=== PATIENT | male | born 1960 | race Caucasian/White ===

== ENCOUNTER 2020-12-14 11:08 | Outpatient (REF) | payer MEDICARE, MEDICAID, SELFPAY ==
[2020-12-14 12:32] LABS: Alanine Aminotransferase 46 U/L (0-40); Albumin Level 3.8 g/dL (3.5-5.0); Alkaline Phosphatase 64 U/L (39-117); Anion Gap 13 (12-20); Aspartate Amino Transferase 41 U/L (5-37); Bilirubin Total 1.2 mg/dL (0.0-1.0); Blood Urea Nitrogen 17 mg/dL (9-16); Calcium 8.8 mg/dL (8.4-10.2); Carbon Dioxide 28 mmol/L (22-29); Chloride 105 mmol/L (96-108); Cholesterol 244 mg/dL; Estimated Glomerular Filt Rate > 60; Glucose Fasting 82 mg/dL (60-99); HDL Cholesterol 68 mg/dL; LDL Cholesterol Calculated 137 mg/dl; Potassium 4.3 mmol/L (3.3-5.1); Sodium 142 mmol/L (135-145); Total Protein 6.6 g/dL (6.5-8.0); Triglycerides 195 mg/dL; Uric Acid 7.9 mg/dL (3.4-7.0)
[2020-12-18 14:01] LABS: Vitamin D 25-OH, D2 <4 ng/mL; Vitamin D 25-OH, D3 30 ng/mL; Vitamin D 25-OH, Total 30 ng/mL (30-100)
== END 2020-12-14 11:09 | disposition home or self-care (01) ==
LOC: HO.LAB 11:08
PROVIDERS: PCP Internal Medicine; Visit Provider Internal Medicine
DX: M10.9 Gout, unspecified (principal); E78.2 Mixed hyperlipidemia; E55.9 Vitamin D deficiency, unspecified
CPT/HCPCS: 36415; 80053; 80061; 82306; 84550

== ENCOUNTER 2021-02-01 09:14 | Outpatient (REF) | payer MEDICARE, MEDICAID, SELFPAY ==
[2021-02-01 11:56] LABS: MANUAL DIFF FLAG NO
[2021-02-01 12:01] LABS: Basophils Percent Auto 0.3 % (0-2); Eosinophils Absolute Auto 0.1 X10*3/uL (0.0-0.4); Hematocrit 40.7 % (42-52); Hemoglobin 13.6 g/dl (14.0-18.0); Imm Gran Abs Auto 0.02 X10*3/uL (0.00-0.03); Imm Gran Pct Auto 0.3 % (0.0-0.4); Lymphocytes Absolute Auto 2.3 X10*3/uL (1.2-4.9); Lymphocytes Percent Auto 33.2 % (20-40); Mean Corpuscular HGB Conc 33.4 g/dl (31.0-36.0); Mean Corpuscular Hemoglobin 33.3 pg (27.0-33.0); Mean Corpuscular Volume 99.5 fL (80-98); Mean Platelet Volume 10.4 fL (9.4-12.4); Monocytes Absolute Auto 0.6 X10*3/uL (0.1-1.2); Monocytes Percent Auto 8.9 % (2-11); Neutrophils Percent Auto 56.3 % (45-73); Platelet Count 204 X10*3/uL (160-400); Red Blood Count 4.09 X10*6/uL (4.60-5.80); Red Cell Distribution Width 12.9 % (11.0-16.0); White Blood Count 7.1 X10*3/uL (4.8-10.8)
[2021-02-01 12:30] LABS: Alanine Aminotransferase 74 U/L (0-40); Albumin Level 3.9 g/dL (3.5-5.0); Alkaline Phosphatase 81 U/L (39-117); Anion Gap 10 (12-20); Aspartate Amino Transferase 64 U/L (5-37); Bilirubin Total 2.4 mg/dL (0.0-1.0); Blood Urea Nitrogen 14 mg/dL (9-16); Calcium 8.7 mg/dL (8.4-10.2); Carbon Dioxide 30 mmol/L (22-29); Chloride 105 mmol/L (96-108); Cholesterol 166 mg/dL; Estimated Glomerular Filt Rate > 60; Glucose Fasting 87 mg/dL (60-99); HDL Cholesterol 76 mg/dL; LDL Cholesterol Calculated 65 mg/dl; Potassium 3.7 mmol/L (3.3-5.1); Sodium 141 mmol/L (135-145); Total Protein 6.6 g/dL (6.5-8.0); Triglycerides 126 mg/dL; Uric Acid 6.2 mg/dL (3.4-7.0)
[2021-02-05 14:11] LABS: Vitamin D 25-OH, D2 <4 ng/mL; Vitamin D 25-OH, D3 27 ng/mL; Vitamin D 25-OH, Total 27 ng/mL (30-100)
== END 2021-02-01 09:15 | disposition home or self-care (01) ==
LOC: HO.LAB 09:14
PROVIDERS: Absent Provider Internal Medicine; PCP Internal Medicine; Referring Provider Internal Medicine; Visit Provider Nurse Practitioner Family
DX: K59.00 Constipation, unspecified (principal); K64.9 Unspecified hemorrhoids; K21.9 Gastro-esophageal reflux disease without esophagitis; D64.9 Anemia, unspecified; E78.2 Mixed hyperlipidemia; E78.5 Hyperlipidemia, unspecified; M10.9 Gout, unspecified; E55.9 Vitamin D deficiency, unspecified
CPT/HCPCS: 36415; 80053; 80061; 82306; 84550; 85025; 99212

== ENCOUNTER → 2021-02-15 09:48 | Outpatient (BNVA) | payer MEDICARE, MEDICAID, SELFPAY | PROVIDERS: PCP Internal Medicine; Visit Provider Anesthesiology | DX: M47.816 Spondylosis without myelopathy or radiculopathy, lumbar region (principal); M46.1 Sacroiliitis, not elsewhere classified; M53.3 Sacrococcygeal disorders, not elsewhere classified; G89.4 Chronic pain syndrome; M25.562 Pain in left knee; M25.561 Pain in right knee; M25.511 Pain in right shoulder; M10.9 Gout, unspecified; E55.9 Vitamin D deficiency, unspecified; E78.2 Mixed hyperlipidemia | CPT/HCPCS: 99212 ==

== ENCOUNTER 2021-03-01 10:31 | Outpatient (REF) | payer MEDICARE, MEDICAID, SELFPAY ==
[2021-03-01 16:23] LABS: Prostate Specific Antigen 1.75 ng/mL (<0.05-4.0)
== END 2021-03-01 10:32 | disposition home or self-care (01) ==
LOC: HO.LAB 10:31
PROVIDERS: PCP Internal Medicine; Visit Provider Nurse Practitioner Family
DX: Z12.5 Encounter for screening for malignant neoplasm of prostate (principal)
CPT/HCPCS: 36415; 84153

== ENCOUNTER → 2021-03-03 09:59 | Outpatient (BNVA) | payer MEDICARE, MEDICAID, SELFPAY | PROVIDERS: PCP Internal Medicine; Visit Provider Nurse Practitioner Family | CPT/HCPCS: Q3014 ==

== ENCOUNTER 2021-03-29 09:55 | Outpatient (REF) | payer MEDICARE, MEDICAID, SELFPAY ==
--- NOTE | ~2021-03-29 | US_ITS ---
EXAMINATION: US COMPLETE ABDOMEN WITH LIVER ELASTOGRAPHY CLINICAL INFORMATION: Abnormal liver function tests COMPARISON: None. TECHNIQUE: Real-time imaging of the abdominal viscera. Noninvasive ultrasound liver fibrosis assessment is performed using Jose ElastPQ point quantification shear wave elastography (pSWE) with a C5-2 MHz transducer. Multiple elastography samples are obtained. FINDINGS: PANCREAS: The visualized pancreatic head and body are normal in appearance. The remainder of the pancreas is obscured from visualization by the overlying bowel gas. ABDOMINAL AORTA: The proximal, middle, and distal aortic segments are normal in caliber. INFERIOR VENA CAVA: Visualized portions are normal. LIVER: Normal. The liver demonstrates normal size, contour and echogenicity. No focal lesion or intrahepatic biliary duct dilatation. The right lobe measures 13 cm in length. The left lobe measures 9 cm in length. Portal flow is normal/hepatopedal Shear wave liver elastography median stiffness is 1.5 m/s (reference: normal median stiffness is 1.3 m/s or less). IQR/median stiffness to assess sampling precision is 0.11 (reference: good quality data set is IQR/median stiffness of 0.15 or less). GALLBLADDER: Normal. The gallbladder is physiologically distended without evidence of stones, sludge, polyps, wall thickening or pericholecystic fluid. COMMON BILE DUCT: Normal in caliber measuring 0.6 cm in diameter. RIGHT KIDNEY: Normal. No hydronephrosis. No renal calculi or focal parenchymal lesions. The kidney measures 8.2 cm in maximum dimension. LEFT KIDNEY: Normal. No hydronephrosis. No renal calculi or focal parenchymal lesions. The kidney measures 10.3 cm in maximum dimension. SPLEEN: Normal. The spleen measures 8.6 cm in maximum dimension. FREE FLUID: None. US/US abdomen comp w elastography IMPRESSION: 1. Impression Limited visualization of the tail the pancreas otherwise unremarkable exam. 2. Liver elastography: Adequate liver sampling. In the absence of other known clinical signs, rules out compensated advanced chronic liver disease. REFERENCE: Society of Radiologists in Ultrasound Liver Stiffness Thresholds (2020): LIVER STIFFNESS THRESHOLDS: *Liver Stiffness equal or less than 1.3 m/s: High probability of being normal. *Liver Stiffness less than 1.7 m/s: In the absence of other known clinical signs, rules out compensated advanced chronic liver disease. *Liver Stiffness 1.7-2.1 m/s: Suggestive of compensated advanced chronic liver disease but need further test for confirmation. *Liver Stiffness over 2.1 m/s: Rules in compensated advanced chronic liver disease. *Liver Stiffness over 2.4 m/s: Suggestive of clinically significant portal hypertension. QUALITY OF DATA SET: *IQR/Median value equal or less than 0.15 implies a quality data set. *IQR/Median value over 0.15 implies a poor quality data set. SIGNIFICANT CHANGE FROM PRIOR EXAM: Significant change if liver stiffness measurement is 10% or greater from prior exam. OTHER CONSIDERATIONS: The stage of liver fibrosis may be overestimated in the setting of acute hepatitis, liver inflammation, elevated liver function tests, hepatic vascular congestion, obstructive cholestasis, non-fasting state, and infiltrative diseases such as amyloidosis and lymphoma. In some patients with NAFLD, the liver stiffness thresholds for compensated advanced chronic liver disease may be lower. In causes other than viral hepatitis and NAFLD, liver stiffness thresholds are not well established.
== END 2021-03-29 09:56 | disposition home or self-care (01) ==
LOC: HO.US 09:55
PROVIDERS: PCP Nurse Practitioner Family; Visit Provider Nurse Practitioner Family
DX: R79.89 Other specified abnormal findings of blood chemistry (principal)
CPT/HCPCS: 76705; 76981

== ENCOUNTER → 2021-04-11 12:06 | Outpatient (BNVA) | payer MEDICARE, MEDICAID, SELFPAY | PROVIDERS: PCP Internal Medicine; Visit Provider Nurse Practitioner Family | CPT/HCPCS: Q3014 ==

== ENCOUNTER 2021-05-02 06:29 | Outpatient (REF) | payer MEDICARE, MEDICAID, SELFPAY ==
--- NOTE | ~2021-05-02 | FL_ITS ---
EXAMINATION: XR FLUOROSCOPY WITH IMAGES CLINICAL INFORMATION: Spondylosis without myelopathy or radiculopathy. COMPARISON: None. TECHNIQUE: Fluoroscopy performed by Shayla Christian. Fluoroscopy time: 0.6 minutes DAP: 7.42 Gycm2 Images: 7 FINDINGS: Images of lumbar spine reveal needle positioned adjacent to the S1, L5, L4 and L3 pedicles with contrast opacifying the adjacent soft tissues. Visualized vertebral L4-L5 height is maintained. The alignment is normal. Mild loss of L5-S1 disc height is seen. FL/FL guidance in treatment room IMPRESSION: Fluoroscopy was provided for pain management of lower lumbar spine.
== END 2021-05-02 06:30 | disposition home or self-care (01) ==
LOC: HO.RADIR 06:29
PROVIDERS: Nurse Practitioner Family; Visit Provider Anesthesiology
DX: G89.4 Chronic pain syndrome (principal); M53.3 Sacrococcygeal disorders, not elsewhere classified; M46.1 Sacroiliitis, not elsewhere classified; M48.16 Ankylosing hyperostosis [Forestier], lumbar region; K21.9 Gastro-esophageal reflux disease without esophagitis
CPT/HCPCS: 64493; 64494; 87338; Q9967

== ENCOUNTER → 2021-05-11 08:28 | Outpatient (BNVA) | payer MEDICARE, MEDICAID, SELFPAY | PROVIDERS: PCP Internal Medicine; Visit Provider Anesthesiology | DX: M47.816 Spondylosis without myelopathy or radiculopathy, lumbar region (principal); M46.1 Sacroiliitis, not elsewhere classified; M53.3 Sacrococcygeal disorders, not elsewhere classified; G89.4 Chronic pain syndrome | CPT/HCPCS: Q3014 ==

== ENCOUNTER → 2021-05-17 14:21 | Outpatient (BNVA) | payer MEDICARE, MEDICAID, SELFPAY | PROVIDERS: PCP Internal Medicine; Visit Provider Nurse Practitioner Family ==

== ENCOUNTER 2021-06-07 09:05 | Outpatient (REF) | payer MEDICARE, MEDICAID, SELFPAY ==
[2021-06-07 10:15] LABS: INTERNATIONAL NORM RATIO 0.9 (0.9-1.1); Prothrombin Time 9.9 SEC (9.9-13.0)
[2021-06-07 10:51] LABS: C Reactive Protein 0.04 mg/dL (< or = 0.50); Gamma Glutamyl Transpeptidase 260 U/L (11-51); Lipase 30 U/L (8-78)
[2021-06-07 10:58] LABS: HBS Num1 2.57 mIU/mL (0-7.99); HBc Num1 0.06 S/CO (0.00-0.79); HBsAGNum1 0.17 S/CO (0.00-0.99); Hepatitis B Core Antibody Nonreactive (Nonreactive); Hepatitis B Surface Antigen Negative (Negative); ~Hepatitis B Surface Antibody NONREACTIVE (Nonreactive)
[2021-06-07 11:01] LABS: HIV AB/AG Nonreactive (Nonreactive); HIV Num 1 0.07 S/CO (0.00-0.99); Hepatitis A Antibody IgM 0.18 Index (0-0.79); ~HepC Num1 0.06 S/CO (0.00-0.79); ~Hepatitis A Antibody IgM Nonreactive (Nonreactive); ~Hepatitis C Antibody Nonreactive (Nonreactive)
[2021-06-07 11:04] LABS: Ferritin 491 ng/mL (20-250)
[2021-06-08 11:11] LABS: Alpha Fetoprotein 6.3 ng/mL (<6.1)
[2021-06-08 13:37] LABS: Alpha 1 Anti-trypsin 116 mg/dL (83-199)
[2021-06-11 13:36] LABS: Smooth Muscle Antibody <20 U (<20)
[2021-06-12 14:37] LABS: Mitochondrial Antibodies NEGATIVE (NEGATIVE)
== END 2021-06-07 09:06 | disposition home or self-care (01) ==
LOC: HO.LAB 09:05
PROVIDERS: PCP Student in an Organized Health Care Education/Training Program; Visit Provider Nurse Practitioner Family
DX: Z11.4 Encounter for screening for human immunodeficiency virus [HIV] (principal); R79.89 Other specified abnormal findings of blood chemistry; R74.8 Abnormal levels of other serum enzymes; R19.7 Diarrhea, unspecified
CPT/HCPCS: 36415; 82103; 82105; 82728; 82977; 83690; 85610; 86140; 86255; 86256; 86704; 86706; 86709; 86803; 87340; 87389

== ENCOUNTER 2021-06-13 10:49 | Outpatient (REF) | payer MEDICARE, MEDICAID, SELFPAY ==
[2021-06-13 11:50] LABS: Bilirubin Direct 0.7 mg/dL (0.0-0.5)
== END 2021-06-13 10:50 | disposition home or self-care (01) ==
LOC: HO.LAB 10:49
PROVIDERS: PCP Internal Medicine; Visit Provider Nurse Practitioner Family
DX: R79.89 Other specified abnormal findings of blood chemistry (principal); R17 Unspecified jaundice
CPT/HCPCS: 36415; 81256; 82248

== ENCOUNTER → 2021-06-14 12:12 | Outpatient (BNVA) | payer MEDICARE, MEDICAID, SELFPAY | PROVIDERS: Visit Provider Nurse Practitioner Family | DX: K59.00 Constipation, unspecified (principal); K21.9 Gastro-esophageal reflux disease without esophagitis; K64.9 Unspecified hemorrhoids; K74.60 Unspecified cirrhosis of liver; A04.8 Other specified bacterial intestinal infections; R94.5 Abnormal results of liver function studies; G89.4 Chronic pain syndrome; E55.9 Vitamin D deficiency, unspecified; E78.2 Mixed hyperlipidemia; F33.0 Major depressive disorder, recurrent, mild; F10.29 Alcohol dependence with unspecified alcohol-induced disorder | CPT/HCPCS: 99212 ==

== ENCOUNTER 2021-09-18 07:41 | Outpatient (REF) | payer MEDICARE, MEDICAID, SELFPAY ==
[2021-09-18 08:06] LABS: MANUAL DIFF FLAG NO
[2021-09-18 08:32] LABS: Basophils Percent Auto 0.3 % (0-2); Eosinophils Absolute Auto 0.1 X10*3/uL (0.0-0.4); Eosinophils Percent Auto 1.8 % (0-4); Hematocrit 43.3 % (42.0-52.0); Hemoglobin 14.2 g/dl (14.0-18.0); Imm Gran Abs Auto 0.01 X10*3/uL (0.00-0.03); Imm Gran Pct Auto 0.1 % (0.0-0.4); Lymphocytes Absolute Auto 3.2 X10*3/uL (1.2-4.9); Lymphocytes Percent Auto 44.8 % (20-40); Mean Corpuscular HGB Conc 32.8 g/dl (31.0-36.0); Mean Corpuscular Hemoglobin 33.8 pg (27.0-33.0); Mean Corpuscular Volume 103.1 fL (80.0-98.0); Mean Platelet Volume 10.3 fL (9.4-12.4); Monocytes Absolute Auto 0.6 X10*3/uL (0.1-1.2); Monocytes Percent Auto 8.9 % (2-11); Neutrophils Absolute Auto 3.1 x10*3/uL (2.0-8.3); Neutrophils Percent Auto 44.1 % (45-73); Platelet Count 214 X10*3/uL (160-400); Red Cell Distribution Width 13.5 % (11.0-16.0); White Blood Count 7.1 X10*3/uL (4.8-10.8)
[2021-09-18 09:00] LABS: Alanine Aminotransferase 31 U/L (0-40); Albumin Level 4.1 g/dL (3.5-5.0); Alkaline Phosphatase 55 U/L (39-117); Anion Gap 10 (12-20); Aspartate Amino Transferase 27 U/L (5-37); Bilirubin Total 1.2 mg/dL (0.0-1.0); Blood Urea Nitrogen 13 mg/dL (9-16); Calcium 9.7 mg/dL (8.4-10.2); Carbon Dioxide 32 mmol/L (22-29); Chloride 105 mmol/L (96-108); Cholesterol 270 mg/dL; Estimated Glomerular Filt Rate > 60; Glucose Fasting 92 mg/dL (60-99); HDL Cholesterol 75 mg/dL; LDL Cholesterol Calculated 171 mg/dl; Potassium 4.3 mmol/L (3.3-5.1); Sodium 143 mmol/L (135-145); Total Protein 6.8 g/dL (6.5-8.0); Triglycerides 120 mg/dL
[2021-09-18 09:10] LABS: Uric Acid 6.3 mg/dL (3.4-7.0)
[2021-09-22 15:16] LABS: Vitamin D 25-OH, D2 <4 ng/mL; Vitamin D 25-OH, D3 17 ng/mL; Vitamin D 25-OH, Total 17 ng/mL (30-100)
== END 2021-09-18 07:42 | disposition home or self-care (01) ==
LOC: HO.LAB 07:41
PROVIDERS: PCP Internal Medicine; Visit Provider Internal Medicine
DX: M10.9 Gout, unspecified (principal); E55.9 Vitamin D deficiency, unspecified; E78.2 Mixed hyperlipidemia; D64.9 Anemia, unspecified
CPT/HCPCS: 36415; 80053; 80061; 82306; 84550; 85025

== ENCOUNTER 2022-02-13 09:05 | Outpatient (REF) | payer MEDICARE, MEDICAID, SELFPAY ==
[2022-02-13 10:58] LABS: Alanine Aminotransferase 54 U/L (0-40); Albumin Level 4.1 g/dL (3.5-5.0); Alkaline Phosphatase 84 U/L (39-117); Anion Gap 13 (12-20); Aspartate Amino Transferase 51 U/L (5-37); Bilirubin Total 2.7 mg/dL (0.0-1.0); Blood Urea Nitrogen 13 mg/dL (9-16); Calcium 8.7 mg/dL (8.4-10.2); Carbon Dioxide 28 mmol/L (22-29); Chloride 103 mmol/L (96-108); Cholesterol 148 mg/dL; Estimated Glomerular Filt Rate > 60; Glucose Fasting 95 mg/dL (60-99); HDL Cholesterol 69 mg/dL; LDL Cholesterol Calculated 59 mg/dl; Potassium 3.6 mmol/L (3.3-5.1); Sodium 140 mmol/L (135-145); Total Protein 6.6 g/dL (6.5-8.0); Triglycerides 102 mg/dL
[2022-02-18 19:07] LABS: Vitamin D 25-OH, D2 <4 ng/mL; Vitamin D 25-OH, D3 25 ng/mL; Vitamin D 25-OH, Total 25 ng/mL (30-100)
== END 2022-02-13 09:06 | disposition home or self-care (01) ==
LOC: HO.LAB 09:05
PROVIDERS: Absent Provider Registered Nurse; PCP Internal Medicine; Visit Provider Internal Medicine
DX: K21.9 Gastro-esophageal reflux disease without esophagitis (principal); R10.9 Unspecified abdominal pain; K74.60 Unspecified cirrhosis of liver; K59.04 Chronic idiopathic constipation; R14.0 Abdominal distension (gaseous); E78.5 Hyperlipidemia, unspecified; E55.9 Vitamin D deficiency, unspecified; Z51.81 Encounter for therapeutic drug level monitoring
CPT/HCPCS: 36415; 80053; 80061; 82306; 99212

== ENCOUNTER 2022-03-15 09:37 | Outpatient (REF) | payer MEDICARE, MEDICAID, SELFPAY ==
--- NOTE | ~2022-03-15 | MR_ITS ---
EXAMINATION: MRI BRAIN WITHOUT CONTRAST CLINICAL INFORMATION: 61-year-old with dizziness and giddiness. COMPARISON: None FINDINGS: Brain Volume: Within normal limits within the limitations of qualitative assessment. Structural: No malformations. Brain and Meninges: DWI sequence demonstrates no restricted diffusion. Specifically, there is no evidence for acute or subacute cerebral ischemia. There are multiple scattered small foci of FLAIR/T2 signal hyperintensity in the subcortical and deeper white matter of both cerebral hemispheres which are nonspecific findings but likely reflect chronic ischemic microangiopathy. Subtle small zones of signal hyperintensity are seen in the veronica on both sides of the midline, which may also reflect minimal chronic ischemic microangiopathy. Other possible etiologies for these findings could include various other forms of vasculopathy such as migraine associated and postinflammatory. Gradient refocused imaging demonstrates no evidence for hemorrhage, hemosiderin staining or abnormal mineral deposition. No extra-axial fluid collections, space-occupying process or mass effect are identified. Ventricles and Subarachnoid Spaces: The ventricular system and subarachnoid spaces are within normal limits without hydrocephalus. There are slightly prominent perivascular spaces in the white matter bilaterally and within the subinsular regions. Orbital Structures: The visualized orbital structures are grossly unremarkable within the limitations of the study. Vascular: Signal voids are noted in the visualized major intracranial vessels. Osseous Structures, Sinuses/Mastoids, Extracranial Soft Tissues: There is nasal septal deviation to the left with mild mucosal thickening in the ethmoid complex and right frontal sinus with a 2.4 cm retention cyst in the left maxillary sinus. The visualized extracranial soft tissue structures are grossly unremarkable. There is hyperostosis frontalis interna, which is an anatomic variant. MR/MR head/brain wo con IMPRESSION: 1. Multiple nonspecific white matter lesions in the cerebral hemispheres and some minimal T2 hyperintensities in the veronica, which probably reflect chronic ischemic microangiopathy in the absence of any other specific known risk factors. 2. No acute intracranial process. No evidence for infarction, hemorrhage, extra-axial fluid collection, space-occupying process, mass effect or hydrocephalus. 3. Sinonasal findings as discussed above.
== END 2022-03-15 09:38 | disposition home or self-care (01) ==
LOC: HO.MRI 09:37
PROVIDERS: Absent Provider Nurse Practitioner Family; PCP Internal Medicine; Visit Provider Internal Medicine
DX: R42 Dizziness and giddiness (principal); G44.52 New daily persistent headache (NDPH)
CPT/HCPCS: 70551

== ENCOUNTER 2022-07-25 10:26 | Outpatient (REF) | payer OTHER, SELFPAY ==
[2022-08-02 18:03] LABS: Pancreatic Elastase-1 >500 mcg/g
== END 2022-07-25 10:27 | disposition home or self-care (01) ==
LOC: HO.LNP 10:26
PROVIDERS: Visit Provider Nurse Practitioner Family
DX: R10.9 Unspecified abdominal pain (principal); K21.9 Gastro-esophageal reflux disease without esophagitis
CPT/HCPCS: 82656; 87338

== ENCOUNTER → 2022-08-14 09:34 | Outpatient (BNVA) | payer OTHER, SELFPAY | PROVIDERS: PCP Internal Medicine; Referring Provider Internal Medicine; Visit Provider Nurse Practitioner Family | DX: K21.9 Gastro-esophageal reflux disease without esophagitis (principal); R74.01 Elevation of levels of liver transaminase levels | CPT/HCPCS: 99212 ==

== ENCOUNTER 2022-09-13 09:25 | Day surgery (SDC) | payer OTHER, SELFPAY ==
[2022-09-10 09:13] VITALS: BMI 32.5
--- NOTE | 2022-09-12 13:20 | P.CONAN_ITS ---
Documented by User: Dawna Cruz NP 09/12/22 13:21 HPI - Anesthesia Eval Consult details Narrative: 62yo M for Upper Endoscopy PMFSH Active Problems Active Problems: All Active Problems (Updated 08/14/22 @ 21:19 by Marisol Covarrubias [facility]) Adult general medical exam (Acute) Dizziness (Acute) New daily persistent headache (Acute) Encounter for Medicare annual wellness exam (Acute) Transaminitis (Acute) Chronic GERD (Acute) Mild recurrent major depression (Acute) Screening for prostate cancer (Acute) Chronic pain syndrome (Acute) Sacroiliac joint dysfunction of right side (Acute) Sacroiliitis (Acute) Spondylosis of lumbar spine (Acute) Bloody stools (Acute) Lumbar pain (Acute) Insomnia (Acute) Hypovitaminosis D (Acute) Mixed hyperlipidemia (Acute) Gout (Acute) Past Medical History Medical History (Updated 08/14/22 @ 21:19 by [facility]) Bloody stools Chronic GERD Chronic pain syndrome Gout Hypovitaminosis D Insomnia Lumbar pain Mild recurrent major depression Mixed hyperlipidemia Sacroiliac joint dysfunction of right side Sacroiliitis Screening for prostate cancer Spondylosis of lumbar spine Transaminitis Family History Family History Father Hypertension Diabetes Mother No problems noted. Sister Breast cancer Substance use disorder Sister Complications of gastric bypass surgery Substance use disorder Other Mental health disorder Surgical History Surgical History (Updated 09/10/22 @ 09:10 by Miriam Lal RN) History of colonoscopy Social History Social History Housing: Apartment Alcohol intake: current Alcohol intake frequency: a few times a month Alcohol type: beer Patient Tobacco Use Status: Never used Tobacco e-Cigarette/Vaping Use: Never Used Second Hand Smoke Exposure: No Use of substances other than those prescribed or required for medical reasons: No Are you DNR?: No Advance Directives: No Advance Directives Information Provided: Yes service: No Current occupational status: unemployed Cognitive needs: No Hearing needs: No Vision needs: Yes Meds Allergies Allergy/AdvReac Type Severity Reaction Status Date / Time No Known Allergies Allergy Verified 08/14/22 09:40 [No Known Allergies*] Home Medications Medication Instructions Recorded Confirmed Last Taken Type allopurinol 300 mg tablet 300 mg PO DAILY 08/24/20 09/10/22 Unknown History acetaminophen 500 mg capsule 500 mg PO TID PRN Insomnia 03/01/21 09/10/22 Unknown History hydroxyzine HCl 25 mg tablet 25 mg PO BID 03/01/21 09/10/22 Unknown History bupropion HCl 150 mg 24 hr tablet, 150 mg PO QAM 03/03/21 09/10/22 Unknown History extended release fluoxetine 40 mg capsule 80 mg PO DAILY 05/09/21 09/10/22 Unknown History Exam Exam Date and Time: September 12, 2022 1320 Height,Weight and Vital Signs: Height 5 ft 6 in Weight 91.626 kg Pertinent Lab Results Pertinent Lab Results: Laboratory Tests 09/18/21 02/13/22 08:05 09:19 WBC 7.1 Hgb 14.2 Hct 43.3 Plt Count 214 Sodium 140 Potassium 3.6 Chloride 103 Carbon Dioxide 28 BUN 13 Creatinine 0.89 Assessment and Plan Assessment Anesthesia Assessment: Chart Reviewed Documented by User: Jamal Zuniga MD 09/13/22 11:12 [facility] Past Medical History Medical History (Updated 08/14/22 @ 21:[address] [facility]-) Bloody stools Chronic GERD Chronic pain syndrome Gout Hypovitaminosis D Insomnia Lumbar pain Mild recurrent major depression Mixed hyperlipidemia Sacroiliac joint dysfunction of right side Sacroiliitis Screening for prostate cancer Spondylosis of lumbar spine Transaminitis Family History Family History Father Hypertension Diabetes Mother No problems noted. Sister Breast cancer Substance use disorder Sister Complications of gastric bypass surgery Substance use disorder Other Mental health disorder Family history of problems with anesthesia: No Surgical History Surgical History (Updated 09/10/22 @ 09:10 by Miriam Lal RN) History of colonoscopy History of Problems with Anesthesia: No Social History Social History Housing: Apartment Alcohol intake: current Alcohol intake frequency: a few times a month Alcohol type: beer Patient Tobacco Use Status: Never used Tobacco e-Cigarette/Vaping Use: Never Used Second Hand Smoke Exposure: No Use of substances other than those prescribed or required for medical reasons: No Are you DNR?: No Advance Directives: No Advance Directives Information Provided: Yes service: No Current occupational status: unemployed Cognitive needs: No Hearing needs: No Vision needs: Yes Meds Allergies Allergy/AdvReac Type Severity Reaction Status Date / Time No Known Allergies Allergy Verified 08/14/22 09:40 [No Known Allergies*] Home Medications Medication Instructions Recorded Confirmed Last Taken Type allopurinol 300 mg tablet 300 mg PO DAILY 08/24/20 09/10/22 Unknown History acetaminophen 500 mg capsule 500 mg PO TID PRN Insomnia 03/01/21 09/10/22 Unknown History hydroxyzine HCl 25 mg tablet 25 mg PO BID 03/01/21 09/10/22 Unknown History bupropion HCl 150 mg 24 hr tablet, 150 mg PO QAM 03/03/21 09/10/22 Unknown History extended release fluoxetine 40 mg capsule 80 mg PO DAILY 05/09/21 09/10/22 Unknown History Exam Airway Mallampati Class: II (Limited mouth opening) TM Dist: >3cm Neck ROM: Full Heart: ok Lungs: ok Assessment and Plan Assessment Anesthesia Assessment: Anesthesia Plan Discussed and Chart Reviewed Final Anesthetic Review Family History of Problems with Anesthesia: No History of Problems with Anesthesia: No NPO: Yes ASA Class: II Final Preanesthetic Review: No Changes in Pt Med Stat, Meds/Allgs Chart Reviewed, Consent Obtained/Reviewed and Anes Risks/Benef Reviewed Patient Risk: Low Procedure Risk: Intermediate Anesthetic Plan Anesthetic Plan: MAC: and Agree w/ Assess. and Plan Disposition: Standard PACU
[2022-09-13 10:00] VITALS: BMI 32.5
[2022-09-13 10:04] VITALS: BMI 32.5
[2022-09-13 10:06] VITALS: BP 150/84; PULSE 95; RESP 16; TEMP 36.3; O2SAT 98
[2022-09-13] MEDS: Lactated Ringers 1,000 ML 100 ML IVCONT (10:09)
--- NOTE | 2022-09-13 11:10 | P.OP_ITS ---
Operative Note Operative Note Date of Service: 09/13/22 Narrative: Procedure: Esophagogastroduodenoscopy Endoscopist: Mayra Garcia MD Indication: Longstanding GERD Anesthesia Provider: Dr Jamal Zuniga Anesthesia Type: MAC ?? EGD Procedure:?? The procedure, indications, preparation and potential complications were revie wed with the patient with the help of official court interpreter, who indicated understanding and gave written informed consent to proceed. A physical exam was performed. The endoscope was introduced through the mouth, and advanced to the second part of duodenum. The mucosa was carefully examined on slow withdrawal of the endoscope. The patient tolerated the procedure well. There were no immediate complications.? ? EGD Findings:? * Esophagus:? The Z line was at 40 cm. 2 tongues of salmon-pink colored columnar mucosa were noted to extend up to 39 cm. Cold forceps biopsies were taken to rule out Flores's esophagus. * Stomach:? Normal mucosa was noted in the stomach. Random gastric biopsies were taken to rule out H Pylori infection. * Duodenum:? Normal mucosa was noted in the whole of the examined duodenum. ? EGD Impressions:? * Columnar mucosa extending above GEJ suspicious for Flores's esophagus (biopsy) * Normal stomach (biopsy) * Normal duodenum ?? Recommendations:?? * Follow biopsy results. Our office will call or send a letter with results within 7-10 days. * Start/continue PPI therapy. * If H pylori +, patient will be prescribed eradication therapy followed by test of cure. * Avoid NSAIDs. Above has been reviewed with the patient. Relevant educational hand outs were provided at discharge. ?
--- NOTE | 2022-09-13 11:10 | MHC.SHP ---
Pre-Procedural Eval Section A Date of Service: 09/13/22 The History & Physical has been completed within 30 days and I have reviewed it.: Yes Section B Chief Complaint: Longstanding GERD Allergies: Allergies Allergy/AdvReac Type Severity Reaction Status Date / Time No Known Allergies Allergy Verified 08/14/22 09:40 [No Known Allergies*] Plan Diagnosis/Plan: Unchanged I have reviewed the history and physical and performed a pertinent physical examination on my patient. No changes have occurred unless specified. Time Spent With Patient Time: Total time managing care of this patient today ____ minutes.
--- NOTE | 2022-09-13 11:10 | W.PM.OPN ---
Operative Note Operative Note Date of Service: 09/13/22 Narrative: Procedure: Esophagogastroduodenoscopy Endoscopist: Mayra Garcia MD Indication: Longstanding GERD Anesthesia Provider: Dr Jamal Zuniga Anesthesia Type: MAC ?? EGD Procedure:?? The procedure, indications, preparation and potential complications were reviewed with the patient with the help of signs cleaner, who indicated understanding and gave written informed consent to proceed. A physical exam was performed. The endoscope was introduced through the mouth, and advanced to the second part of duodenum. The mucosa was carefully examined on slow withdrawal of the endoscope. The patient tolerated the procedure well. There were no immediate complications.? ? EGD Findings:? Esophagus:? The Z line was at 40 cm. 2 tongues of salmon-pink colored columnar mucosa were noted to extend up to 39 cm. Cold forceps biopsies were taken to rule out Flores's esophagus. Stomach:? Normal mucosa was noted in the stomach. Random gastric biopsies were taken to rule out H Pylori infection. Duodenum:? Normal mucosa was noted in the whole of the examined duodenum. ? EGD Impressions:? Columnar mucosa extending above GEJ suspicious for Flores's esophagus (biopsy) Normal stomach (biopsy) Normal duodenum ?? Recommendations:?? Follow biopsy results. Our office will call or send a letter with results within 7-10 days. Start/continue PPI therapy. If H pylori +, patient will be prescribed eradication therapy followed by test of cure. Avoid NSAIDs. Above has been reviewed with the patient. Relevant educational hand outs were provided at discharge. ?
[2022-09-13 11:43] VITALS: BP 94/55; PULSE 87; RESP 14; TEMP 36.7; O2SAT 93
[2022-09-13 11:58] VITALS: BP 120/68; PULSE 76; RESP 16; TEMP 36.7; O2SAT 97
== END 2022-09-13 12:50 | disposition home or self-care (01) ==
PROVIDERS: PCP Internal Medicine; Visit Provider Internal Medicine
PROC: 0DJ08ZZ Inspection of Upper Intestinal Tract, Via Natural or Artificial Opening Endoscopic (ICD-10-PCS; CPT 43235; principal; 2022-09-13 10:50)
DX: K21.9 Gastro-esophageal reflux disease without esophagitis (principal); K22.89 Other specified disease of esophagus; R14.0 Abdominal distension (gaseous); Z86.19 Personal history of other infectious and parasitic diseases; K58.2 Mixed irritable bowel syndrome; K59.04 Chronic idiopathic constipation; R74.01 Elevation of levels of liver transaminase levels; Z79.899 Other long term (current) drug therapy
CPT/HCPCS: 43239; 88305; 88342; J3010

== ENCOUNTER 2022-09-26 08:35 | Outpatient (REF) | payer OTHER, SELFPAY ==
[2022-09-26 08:53] LABS: MANUAL DIFF FLAG NO
[2022-09-26 09:18] LABS: Basophils Percent Auto 0.5 % (0-2); Eosinophils Absolute Auto 0.1 X10*3/uL (0.0-0.4); Eosinophils Percent Auto 1.6 % (0-4); Hematocrit 43.1 % (42.0-52.0); Hemoglobin 14.6 g/dl (14.0-18.0); Imm Gran Abs Auto 0.01 X10*3/uL (0.00-0.03); Imm Gran Pct Auto 0.2 % (0.0-0.4); Lymphocytes Absolute Auto 2.7 X10*3/uL (1.2-4.9); Lymphocytes Percent Auto 41.2 % (20-40); Mean Corpuscular HGB Conc 33.9 g/dl (31.0-36.0); Mean Corpuscular Hemoglobin 34.1 pg (27.0-33.0); Mean Corpuscular Volume 100.7 fL (80.0-98.0); Monocytes Absolute Auto 0.5 X10*3/uL (0.1-1.2); Monocytes Percent Auto 7.1 % (2-11); Neutrophils Absolute Auto 3.2 x10*3/uL (2.0-8.3); Neutrophils Percent Auto 49.4 % (45-73); Platelet Count 243 X10*3/uL (160-400); Red Blood Count 4.28 X10*6/uL (4.60-5.80); Red Cell Distribution Width 13.1 % (11.0-16.0); White Blood Count 6.5 X10*3/uL (4.8-10.8)
[2022-09-26 09:24] LABS: INTERNATIONAL NORM RATIO 0.8 (0.9-1.1); Prothrombin Time 9.4 SEC (10.0-13.1)
[2022-09-26 09:53] LABS: Uric Acid 6.5 mg/dL (3.4-7.0)
[2022-09-26 09:54] LABS: Alanine Aminotransferase 28 U/L (0-40); Alkaline Phosphatase 66 U/L (39-117); Anion Gap 14 (12-20); Aspartate Amino Transferase 28 U/L (5-37); Bilirubin Direct 0.4 mg/dL (0.0-0.5); Bilirubin Total 1.3 mg/dL (0.0-1.0); Blood Urea Nitrogen 17 mg/dL (9-16); Calcium 8.8 mg/dL (8.4-10.2); Carbon Dioxide 29 mmol/L (22-29); Chloride 105 mmol/L (96-108); Cholesterol 273 mg/dL; Estimated Glomerular Filt Rate > 60; Glucose Fasting 88 mg/dL (60-99); HDL Cholesterol 72 mg/dL; LDL Cholesterol Calculated 172 mg/dl; Lipase 41 U/L (8-78); Potassium 3.6 mmol/L (3.3-5.1); Sodium 144 mmol/L (135-145); Total Protein 6.4 g/dL (6.5-8.0); Triglycerides 147 mg/dL
[2022-09-26 10:00] LABS: Vitamin D 25-OH Total 23.2 ng/mL (>30)
[2022-09-26 10:03] LABS: Ferritin 622 ng/mL (20-250)
[2022-09-26 11:20] LABS: Hepatitis A Antibody IgG REACTIVE (Nonreactive); ~Hepatitis A Antibody IgG 11.12 S/CO (0.00-0.99)
[2022-09-28 13:59] LABS: Alpha Fetoprotein 6.4 ng/mL (<6.1)
[2022-09-28 14:33] LABS: Ceruloplasmin 19 mg/dL (18-36)
== END 2022-09-26 08:36 | disposition home or self-care (01) ==
LOC: HO.LAB 08:35
PROVIDERS: Internal Medicine; Nurse Practitioner Family; Visit Provider Internal Medicine
DX: D64.9 Anemia, unspecified (principal); R42 Dizziness and giddiness; K21.9 Gastro-esophageal reflux disease without esophagitis; R74.01 Elevation of levels of liver transaminase levels; K70.9 Alcoholic liver disease, unspecified; R74.8 Abnormal levels of other serum enzymes; R10.9 Unspecified abdominal pain; E55.9 Vitamin D deficiency, unspecified; M10.9 Gout, unspecified; E78.5 Hyperlipidemia, unspecified; G44.52 New daily persistent headache (NDPH); Z79.899 Other long term (current) drug therapy; R79.89 Other specified abnormal findings of blood chemistry
CPT/HCPCS: 36415; 80053; 80061; 80076; 82105; 82248; 82306; 82390; 82728; 83690; 84550; 85025; 85610; 86708; 99212

== ENCOUNTER 2022-10-12 09:45 | Outpatient (REF) | payer OTHER, SELFPAY ==
--- NOTE | ~2022-10-12 | US_ITS ---
EXAMINATION: US ABDOMEN COMPLETE CLINICAL INFORMATION: Elevation of liver transaminase levels. COMPARISON: Ultrasound abdomen 03/29/2021. TECHNIQUE: Real-time imaging of the abdominal viscera. FINDINGS: PANCREAS: The tail is obscured by overlying bowel gas. Otherwise, within normal limits. ABDOMINAL AORTA: The proximal, mid, and distal segments are normal in caliber. INFERIOR VENA CAVA: Visualized portions are normal. LIVER: Normal. The liver is normal in size. The liver contour is normal. Parenchymal echogenicity is normal. No focal hepatic lesion. There is no intrahepatic biliary duct dilatation seen. GALLBLADDER: Normal. The gallbladder is physiologically distended without evidence of stones, sludge, polyps, wall thickening or pericholecystic fluid. COMMON BILE DUCT: Normal in caliber measuring 0.4 cm in diameter. RIGHT KIDNEY: Normal. No hydronephrosis. No renal calculi or focal parenchymal lesions. The kidney measures 9.7 cm in maximum dimension. LEFT KIDNEY: Nonobstructive calculus in the lower pole measuring 0.4 cm. No hydronephrosis or focal parenchymal lesions. The kidney measures 10.3 cm in maximum dimension. SPLEEN: Normal. The spleen measures 8.9 cm in maximum dimension. FREE FLUID: None. US/US abdomen complete IMPRESSION: 1. Nonobstructive 0.4 cm calculus in the lower pole of the left kidney. 2. Otherwise, normal examination.
== END 2022-10-12 09:46 | disposition home or self-care (01) ==
LOC: HO.US 09:45
PROVIDERS: PCP Internal Medicine; Visit Provider Internal Medicine
DX: R74.01 Elevation of levels of liver transaminase levels (principal); K70.9 Alcoholic liver disease, unspecified
CPT/HCPCS: 76700

== ENCOUNTER → 2022-12-24 08:48 | Outpatient (BNVA) | payer OTHER, SELFPAY | PROVIDERS: PCP Internal Medicine; Referring Provider Internal Medicine; Visit Provider Nurse Practitioner Family | DX: K70.9 Alcoholic liver disease, unspecified (principal); K21.9 Gastro-esophageal reflux disease without esophagitis; K59.04 Chronic idiopathic constipation | CPT/HCPCS: 99212 ==

== ENCOUNTER 2023-06-26 09:12 | Outpatient (AMB) | payer OTHER, SELFPAY ==
--- NOTE | 2023-06-26 09:36 | A.OFFVIS_ITS ---
Intake Vital Signs 06/26/23 09:37 Height 5 ft 6 in Weight 202 lb 13.204 oz BMI 32.7 BP 102/59 L Blood Pressure Location Lt brachial Position Sitting Pulse 94 Pulse Source Pulse Oximeter Pulse Oximetry (%) 98 Oxygen Delivery Method Room Air Intake Visit Reasons: 6 month fu Intake Note: Pt presents to the office today for a 6 month follow up. Pt states he is feeling so/so. He states he gets dizzy about one time a day. Pt denies any GI issues at this time. Allergies No Known Allergies [No Known Allergies*] Allergy (Verified 06/26/23 09:40) HPI 6 month fu HPI Details LAST VISIT Alcoholic liver disease Discussed with patient the importance of avoiding alcohol. Patient states that he drinks few times a week mainly beers. Chronic idiopathic constipation History of constipation will resend a script for Senokot. Patient states that 1 Senokot every night was helpful. Patient was also encouraged to increase fluid intake and activity to promote better bowel motility the Chronic GERD Continue pantoprazole half an hour before breakfast. I will add famotidine at bedtime. Patient was encouraged to avoid dietary triggers in late night snacking. Staying upright for minimal 3 meals discussed patient. I will see him in 6 months, sooner on as needed basis. Patient is agreeable to this plan and ve rbalizes understanding of instructions. He was given the opportunity to ask questions and all questions answered. ? Thank you for me to participate in his care Plan Orders Orders Lipase Today R10.9 - Unspecified abdominal pain Ferritin Today R74.8 - Abnormal levels of other serum enzymes Medications New famotidine (Pepcid) 20 mg PO BEDTIME 90 tabs 3RF K21.9 - Gastro-esophageal reflux disease without esophagitis Refilled sennosides (Natural Senna Laxative) Almita tableta cada noche 8.6 mg PO BEDTIME PRN 90 tabs 3RF constipation K59.00 - Constipation, unspecified cholecalciferol (vitamin D3) 50 mcg PO DAILY 90 days 90 tabs 1RF E55.9 - Vitamin D deficiency, unspecified TODAY'S VISIT Patient is here today for follow-up. Patient reports a since the last time I have seen him he has been feeling better. He is taking famotidine and pantoprazole daily and reports that his symptoms of acid reflux are suppressed. Patient denies dyspepsia, dysphagia or odynophagia. Patient reports that he is moving his bowels better. Takes Senokot at bedtime as needed. Patient admits to drinking alcohol about 2 packs a week. Patient denies any abdominal pain or discomfort. Denies any abdominal distention or bloating. [facility] Medical History Transaminitis Chronic GERD Mild recurrent major depression Screening for prostate cancer Chronic pain syndrome Sacroiliac joint dysfunction of right side Sacroiliitis Spondylosis of lumbar spine Bloody stools Lumbar pain Insomnia Hypovitaminosis D Mixed hyperlipidemia Gout Surgical History History of endoscopy History of colonoscopy Family History Father Hypertension Diabetes Mother No problems noted. Sister Breast cancer Substance use disorder Sister Complications of gastric bypass surgery Substance use disorder Other Mental health disorder Social History Housing: Apartment Alcohol intake: current Alcohol intake frequency: a few times a week Alcohol type: beer Patient Tobacco Use Status: Never used Tobacco e-Cigarette/Vaping Use: Never Used Second Hand Smoke Exposure: No service: No Current occupational status: unemployed Cognitive needs: No Hearing needs: No Vision needs: Yes Review of Systems Const Denies weight gain and Denies weight loss ENT Reports no additional complaints, Denies dysphagia and Denies odynophagia Card Reports no additional complaints Resp Reports no additional complaints GI Denies abdominal pain, Denies belching, Denies melena, Denies bloating, Denies change in bowel habits, Denies dysphagia, Denies excessive flatus, Denies dyspepsia, Denies heartburn, Denies diarrhea, Denies loose stools, Denies nausea, Denies odynophagia and Denies vomiting Reports no additional complaints Musc Reports no additional complaints Neuro Reports no additional complaints Psych Reports no additional complaints Endo Reports no additional complaints Physical Exam Vital Signs: Last Vital Signs Pulse 94 06/26/23 09:37 BP 102/59 L 06/26/23 09:37 Pulse Ox 98 06/26/23 09:37 Oxygen Delivery Method Room Air 06/26/23 09:37 BMI result Body Mass Index 32.7 Const General: healthy appearing, no acute distress and well developed Nutritional Appearance: well nourished Orientation/consciousness: patient oriented x3 HEENT Head: Yes normal to inspection, Yes normocephalic and Yes atraumatic Face and sinus: Yes normal facial exam Mouth: Normal oral and palatal mucosa present Throat: Yes posterior oropharynx normal, Yes tonsils normal and Yes uvula midline Eyes General: appearance normal, both eyes and all related structures Neck Neck: Yes normal visual inspection, Yes full ROM and Yes trachea midline Thyroid: Thyroid normal Resp Effort & Inspection: normal respiratory effort, able to speak in complete sentences, no tracheal deviation and symmetric chest movement Auscultation: clear to auscultation bilaterally Cardio Rate: regular rate Heart sounds: S1 normal heart sound present and S2 normal heart sound present GI Inspection: Yes normal to inspection, No distended and Yes obesity Palpation (GI): Soft to palpation, not firm, nontender and No hepatosplenomegaly present Auscultation: normal bowel sounds General: Yes no CVA tenderness Back/Spine/Pelvis Back: no CVA tenderness Skin General skin exam: elasticity normal, turgor normal and dry skin Neuro General: patient oriented x3 Psych Appearance: grossly normal Mental Status: mental status grossly normal Assessment & Plan Assessment & Plan (1) Chronic idiopathic constipation: Code(s): K59.04 - Chronic idiopathic constipation (2) Alcoholic liver disease: Code(s): K70.9 - Alcoholic liver disease, unspecified (3) Elevated transaminase level: Code(s): R74.01 - Elevation of levels of liver transaminase levels (4) Chronic GERD: Code(s): K21.9 - Gastro-esophageal reflux disease without esophagitis Plan Continue current therapy with PPI and H2 michael. Patient can continue taking Senokot at bedtime to help her move his bowels. Patient was also encouraged to avoid fluid intake and activity to promote better bowel motility. Patient was encouraged to quit drinking alcohol. We will recheck his liver enzymes today. Will check iron profile, ferritin, bilirubin. I will see patient in 6 months, sooner on as needed basis. Next visit patient will need ultrasound to re- evaluate his liver. Patient is agreeable to this plan and verbalizes understanding of instructions. He was given the opportunity to ask questions and all questions answered. Thank you for allowing me to participate in his care Orders: Orders Bilirubin Total 06/26/23 R10.9 - Unspecified abdominal pain Lipase 06/26/23 R10.9 - Unspecified abdominal pain IRON PROFILE 06/26/23 D64.9 - Anemia, unspecified Ferritin 06/26/23 R74.8 - Abnormal levels of other serum enzymes Bilirubin Direct 06/26/23 R17 - Unspecified jaundice Liver Panel 06/26/23 R10.9 - Unspecified abdominal pain Medications: Refilled sennosides (Natural Senna Laxative) Almita tableta cada noche 8.6 mg PO BEDTIME PRN 90 tabs 3RF constipation K59.00 - Constipation, unspecified cholecalciferol (vitamin D3) 50 mcg PO DAILY 90 tabs 1RF 90 days E55.9 - Vitamin D deficiency, unspecified pantoprazole take one tablet half an hour before breakfast 20 mg PO DAILY 30 tabs 2RF K21.9 - Gastro-esophageal reflux disease without esophagitis Coding Level of Care Code Est Pt Level 3 (47681) Diagnoses Chronic idiopathic constipation K59.04 Alcoholic liver disease K70.9 Elevated transaminase level R74.01 Chronic GERD K21.9 Time Spent (min) 25 Comment 15 minutes spent with patient and additional 10 minutes spent reviewing his records
[2023-06-26 09:37] VITALS: BP 102/59; PULSE 94; O2SAT 98; BMI 32.7
== END 2023-06-26 10:05 | disposition home or self-care (01) ==
PROVIDERS: Visit Provider Nurse Practitioner Family
DX: K59.04 Chronic idiopathic constipation (principal); K70.9 Alcoholic liver disease, unspecified; R74.01 Elevation of levels of liver transaminase levels; K21.9 Gastro-esophageal reflux disease without esophagitis
CPT/HCPCS: 99213

== ENCOUNTER → 2023-06-26 09:12 | Outpatient (BNVA) | payer OTHER, SELFPAY | PROVIDERS: Visit Provider Nurse Practitioner Family | DX: K59.04 Chronic idiopathic constipation (principal); K70.9 Alcoholic liver disease, unspecified; R74.01 Elevation of levels of liver transaminase levels; K21.9 Gastro-esophageal reflux disease without esophagitis; Z79.899 Other long term (current) drug therapy | CPT/HCPCS: 99212 ==

== ENCOUNTER 2023-07-22 09:35 | Outpatient (REF) | payer OTHER, SELFPAY ==
[2023-07-22 11:15] LABS: Alanine Aminotransferase 78 U/L (0-40); Albumin Level 3.9 g/dL (3.5-5.0); Alkaline Phosphatase 91 U/L (39-117); Anion Gap 10 (12-20); Aspartate Amino Transferase 71 U/L (5-37); Bilirubin Direct 0.5 mg/dL (0.0-0.5); Bilirubin Total 1.9 mg/dL (0.0-1.0); Blood Urea Nitrogen 16 mg/dL (9-16); Calcium 8.8 mg/dL (8.4-10.2); Carbon Dioxide 30 mmol/L (22-29); Chloride 107 mmol/L (96-108); Cholesterol 177 mg/dL (<200); Estimated Glomerular Filt Rate > 60; Glucose Fasting 94 mg/dL (60-99); HDL Cholesterol 70 mg/dL (>40); Iron 187 mcg/dL (45-160); LDL Cholesterol Calculated 76 mg/dL (<100); Lipase 28 U/L (8-78); Percent Iron Saturation 88 % (15-50); Potassium 3.5 mmol/L (3.3-5.1); Sodium 143 mmol/L (135-145); Total Iron Binding Capacity 212 mcg/dL (228-428); Total Protein 6.6 g/dL (6.5-8.0); Triglycerides 157 mg/dL (<150); Unsaturated Iron Binding < 25 ug/dL
[2023-07-22 11:26] LABS: Ferritin 685 ng/mL (20-250)
[2023-07-22 11:35] LABS: Vitamin D 25-OH Total 26.5 ng/mL (>30)
== END 2023-07-22 09:36 | disposition home or self-care (01) ==
LOC: HO.LAB 09:35
PROVIDERS: Nurse Practitioner Family; PCP Internal Medicine; Visit Provider Internal Medicine
DX: E78.5 Hyperlipidemia, unspecified (principal); E55.9 Vitamin D deficiency, unspecified; K70.9 Alcoholic liver disease, unspecified; R10.9 Unspecified abdominal pain; R74.8 Abnormal levels of other serum enzymes; D64.9 Anemia, unspecified
CPT/HCPCS: 36415; 80053; 80061; 80076; 82248; 82306; 82728; 83540; 83690

== ENCOUNTER 2023-12-18 07:50 | Outpatient (REF) | payer OTHER, SELFPAY ==
[2023-12-18 09:15] LABS: Bilirubin Direct 0.3 mg/dL (0.0-0.5); Lipase 33 U/L (8-78)
[2023-12-18 09:16] LABS: Ferritin 630 ng/mL (20-250)
== END 2023-12-18 07:51 | disposition home or self-care (01) ==
LOC: HO.LAB 07:50
PROVIDERS: PCP Internal Medicine; Visit Provider Nurse Practitioner Family
DX: R10.9 Unspecified abdominal pain (principal); R17 Unspecified jaundice; R74.8 Abnormal levels of other serum enzymes
CPT/HCPCS: 36415; 82247; 82248; 82728; 83690

== ENCOUNTER 2023-12-25 09:46 | Outpatient (AMB) | payer OTHER, SELFPAY ==
--- NOTE | 2023-12-25 09:48 | MHC.OFFVIS ---
Vital Signs 12/25/23 09:55 Height 5 ft 6 in Weight 203 lb BMI 32.8 BP 129/74 Blood Pressure Location Lt brachial Position Sitting Pulse 90 Intake Visit Reasons: 6 month follow up Labs Intake Note: Patient is seen in office for 6 month follow up visit, following labs. Pt c/o: for the last 2 months been experiencing constant RUQ pain, post-pandrial nausea and diarrhea, denies any other concerns Fagot Maker Required: Yes Fagot Maker Language: Armenian Accompanied by: Self / Same As Patient Allergies No Known Allergies [No Known Allergies*] Allergy (Verified 12/25/23 09:54) HPI HPI 6 month follow up Labs: Details: LAST VISIT: Chronic idiopathic constipation Alcoholic liver disease Elevated transaminase level Chronic GERD Plan Continue current therapy with PPI and H2 michael. Patient can continue taking Senokot at bedtime to help her move his bowels. Patient was also encouraged to avoid fluid intake and activity to promote better bowel motility. Patient was encouraged to quit drinking alcohol. We will recheck his liver enzymes today. Will check iron profile, ferritin, bilirubin. I will see patient in 6 months, sooner on as needed basis. Next visit patient will need ultrasound to re-evaluate his liver. Patient is agreeable to this plan and verbalizes understanding of instructions. He was given the opportunity to ask questions and all questions answered. ? Thank you for allowing me to participate in his care Orders Orders Bilirubin Total 06/26/23 R10.9 Lipase 06/26/23 R10.9 IRON PROFILE 06/26/23 D64.9 Ferritin 06/26/23 R74.8 Bilirubin Direct 06/26/23 R17 Liver Panel 06/26/23 R10.9 Medications Refilled sennosides (Natural Senna Laxative) Almita tableta cada noche 8.6 mg PO BEDTIME PRN 90 tabs 3RF constipation K59.00 cholecalciferol (vitamin D3) 50 mcg PO DAILY 90 tabs 1RF 90 days E55.9 pantoprazole take one tablet half an hour before breakfast 20 mg PO DAILY 30 tabs 2RF K21.9 TODAY'S VISIT: Patient is here today for follow-up and to discuss lab results. Patient had normal lab results, continues to have a right upper quadrant pain. Patient reports that the pain is then not necessarily related to food. Feels like the pain is there all the time. Patient feels tender to touch as well in that area. Patient denies any nausea or vomiting. Reports occasional dyspepsia without dysphagia or odynophagia. Reports constipation. Sometimes no BM for 2 days. Denies melena, hematochezia, unintentional weight loss or ribbon like stools. Patient had last colonoscopy in 2018 that showed tubular adenoma. He will need to have repeat colonoscopy. Patient states that he continues to drink alcohol within 1 week he might have 10 beers. Patient states that he cut down quite a bed on drinking. Patient denies any issues with anesthesia in the past. No history of sleep apnea. Not on any anticoagulation medication. Patient had endoscopy last year, no gastritis, esophagitis or Flores's found. [facility] Medical History Transaminitis Chronic GERD Mild recurrent major depression Screening for prostate cancer Chronic pain syndrome Sacroiliac joint dysfunction of right side Sacroiliitis Spondylosis of lumbar spine Bloody stools Lumbar pain Insomnia Hypovitaminosis D Mixed hyperlipidemia Gout Surgical History History of endoscopy History of colonoscopy Family History Father Hypertension Diabetes Mother No problems noted. Sister Breast cancer Substance use disorder Sister Complications of gastric bypass surgery Substance use disorder Other Mental health disorder Social History Housing: Apartment Alcohol intake: current Alcohol intake frequency: a few times a week Alcohol type: beer Patient Tobacco Use Status: Never used Tobacco e-Cigarette/Vaping Use: Never Used Second Hand Smoke Exposure: No service: No Current occupational status: unemployed Cognitive needs: No Hearing needs: No Vision needs: Yes Physical Exam Vital Signs: Last Vital Signs Pulse 90 12/25/23 09:55 BP 129/74 12/25/23 09:55 BMI result Body Mass Index 32.8 Const General: healthy appearing, no acute distress and well developed Nutritional Appearance: well nourished Orientation/consciousness: patient oriented x3 Resp Effort & Inspection: normal respiratory effort, able to speak in complete sentences, no tracheal deviation and symmetric chest movement Auscultation: clear to auscultation bilaterally Cardio Rate: regular rate GI Inspection: Yes normal to inspection, No distended and Yes obesity Palpation (GI): Soft to palpation, not firm, Tenderness to palpation present (GI) (RUQ) and No hepatosplenomegaly present Auscultation: normal bowel sounds General: Yes no CVA tenderness Back/Spine/Pelvis Back: no CVA tenderness Skin General skin exam: elasticity normal, turgor normal and dry skin Neuro General: patient oriented x3 Psych Appearance: grossly normal Mental Status: mental status grossly normal Results Reviewed Results Reviewed: Laboratory Tests 12/18/23 08:01 Ferritin 630 H Total Bilirubin 1.0 Direct Bilirubin 0.3 Lipase 33 Assessment & Plan Assessment & Plan (1) Chronic idiopathic constipation: Code(s): K59.04 - Chronic idiopathic constipation Category: Medical (2) Colon cancer screening: Code(s): Z12.11 - Encounter for screening for malignant neoplasm of colon Category: Medical (3) Alcoholic liver disease: Code(s): K70.9 - Alcoholic liver disease, unspecified Category: Medical (4) Elevated transaminase level: Code(s): R74.01 - Elevation of levels of liver transaminase levels Category: Medical (5) Chronic GERD: Code(s): K21.9 - Gastro-esophageal reflux disease without esophagitis Category: Medical (6) GERD (gastroesophageal reflux disease): Code(s): K21.9 - Gastro-esophageal reflux disease without esophagitis Qualifiers: Esophagitis presence: esophagitis presence not specified Qualified Code(s): K21.9 - Gastro-esophageal reflux disease without esophagitis (7) RUQ abdominal pain: Code(s): R10.11 - Right upper quadrant pain Plan Right upper quadrant tenderness, hyperactive bowels, biliary colic versus gas trapping pain. Patient reports that the pain is there all the time the med what he eats. Will send patient for HIDA scan. Patient reports to be constipated will increase senna to 2 tablets daily. Patient reports worse acid reflux throughout the day, change PPI to Nexium 40 mg daily. Patient can continue taking famotidine at bedtime. Patient reports no symptoms at night time. Discussed with patient avoiding dietary triggers and late night snacking. Staying upright for minimum 3 hours after meals discussed with patient. Patient will be sent for colonoscopy. We will make appointment for that today, however I will see patient in 6 weeks to re-evaluate and discuss HIDA scan. Patient is agreeable to this plan and verbalizes understanding of instructions. He was given the opportunity to ask questions and all questions answered. Thank you for allowing me to participate in his care Orders: Orders NM hepatobiliary w pharm Today R10.11 - Right upper quadrant pain Medications: New esomeprazole magnesium (Nexium) 40 mg PO DAILY 30 caps 5RF K21.9 - Gastro-esophageal reflux disease without esophagitis Changed From sennosides (Natural Senna Laxative) Almita tableta cada noche 8.6 mg PO BEDTIME PRN 90 tabs 3RF constipation K59.00 - Constipation, unspecified To sennosides (Natural Senna Laxative) Almita tableta cada noche 8.6 mg PO BEDTIME 90 tabs 3RF constipation K59.00 - Constipation, unspecified Discontinued pantoprazole take one tablet half an hour before breakfast Discontinued Reason: Doctor's Order 20 mg PO DAILY 30 tabs 2RF K21.9 - Gastro-esophageal reflux disease without esophagitis Coding Level of Care Code Est Pt Level 4 (92512) Diagnoses Chronic idiopathic constipation K59.04 Colon cancer screening Z12.11 Alcoholic liver disease K70.9 Elevated transaminase level R74.01 Chronic GERD K21.9 Gastroesophageal reflux disease, unspecified whether esophagitis present K21.9 Esophagitis presence: esophagitis presence not specified RUQ abdominal pain R10.11 Time Spent (min) 35 Comment 20 minutes spent with patient and additional 15 minutes spent reviewing his records
[2023-12-25 09:55] VITALS: BP 129/74; PULSE 90; BMI 32.8
== END 2023-12-25 10:26 | disposition home or self-care (01) ==
PROVIDERS: PCP Internal Medicine; Visit Provider Nurse Practitioner Family
DX: K59.04 Chronic idiopathic constipation (principal); Z12.11 Encounter for screening for malignant neoplasm of colon; K70.9 Alcoholic liver disease, unspecified; R74.01 Elevation of levels of liver transaminase levels; K21.9 Gastro-esophageal reflux disease without esophagitis; R10.11 Right upper quadrant pain
CPT/HCPCS: 99214

== ENCOUNTER → 2023-12-25 09:46 | Outpatient (BNVA) | payer OTHER, SELFPAY | PROVIDERS: PCP Internal Medicine; Visit Provider Nurse Practitioner Family | DX: K21.9 Gastro-esophageal reflux disease without esophagitis (principal); K59.04 Chronic idiopathic constipation; K70.9 Alcoholic liver disease, unspecified; R74.01 Elevation of levels of liver transaminase levels; R10.11 Right upper quadrant pain; R19.7 Diarrhea, unspecified; R11.0 Nausea | CPT/HCPCS: 99212 ==

== ENCOUNTER → 2024-01-06 09:44 | Outpatient (REF) | payer OTHER, SELFPAY ==
--- NOTE | ~2024-01-06 | NM_ITS ---
EXAMINATION: BILIARY TRACT IMAGING STUDY WITH CCK CLINICAL INFORMATION: Right upper quadrant abdominal pain. COMPARISON: Abdominal ultrasound done on 10/12/2022.. TECHNIQUE: Serial gamma scintillation camera images were obtained over the abdomen for a total observation period of 60 minutes following the intravenous administration of 5.0 mCi Tc-99m mebrofenin. FINDINGS: There is good concentration of activity in the liver by 5 minutes post injection. Biliary activity is visualized by 10 minutes. The gallbladder is well visualized by 20 minutes. Small bowel is well visualized by 20 minutes. At 60 minutes post radiopharmaceutical injection, a 30-minute infusion of 1.8 micrograms Sincalide was then begun and an additional 40 minutes of images were obtained. There is rapid emptying of the gallbladder. By the end of the study there is good clearance of activity from the liver and visualization of diffuse small bowel activity. The calculated gallbladder ejection fraction is 81% (Normal range of gallbladder ejection fraction is between 35-80%; GBEF <35% is considered biliary hypokinesia and >80% is considered biliary hyperkinesia; Ref. #1-Clinical Journal of Gastroenterology (2020) 14:1308?1317; Ref.#2-[email or web address]). NM/NM hepatobiliary w pharm IMPRESSION: Visualization of the gallbladder is evidence of a patent cystic duct and strong evidence against the diagnosis of acute cholecystitis. The common bile duct is patent. Gallbladder emptying and ejection fraction are abnormal. Liver function appears normal.
== END ==
LOC: HO.NUCMED 09:44
PROVIDERS: PCP Internal Medicine; Visit Provider Nurse Practitioner Family
DX: R10.11 Right upper quadrant pain (principal)
CPT/HCPCS: 78227; A9537; J2805

== ENCOUNTER 2024-03-12 14:11 | Outpatient (AMB) | payer OTHER, SELFPAY ==
[2024-03-12 14:17] VITALS: BP 132/70; BMI 32.4
--- NOTE | 2024-03-12 14:18 | A.OFFVIS_ITS ---
Intake Vital Signs 03/12/24 14:17 Height 5 ft 6 in Weight 201 lb BMI 32.4 BP 132/70 Blood Pressure Location Lt brachial Position Sitting Intake Visit Reasons: Annual PE Backend Python Developer Required: No Accompanied by: Self / Same As Patient Allergies No Known Allergies [No Known Allergies*] Allergy (Verified 03/12/24 14:29) Medication List - Last Reconciled 03/12/24 by Lexii López MD acetaminophen 500 mg PO TID PRN atorvastatin 80 mg PO BEDTIME 90 days bupropion HCl XL 150 mg PO QAM 90 days cholecalciferol (vitamin D3) 50 mcg PO DAILY 90 days docusate sodium 100 mg PO BEDTIME esomeprazole magnesium (Nexium) 40 mg PO DAILY famotidine (Pepcid) 20 mg PO BEDTIME fluoxetine 80 mg PO DAILY hepatitis B vacc-CpG 1018 (PF) 20 mcg/0.5 mL (Heplisav-B (PF)) 20 mcg (0.5 mL) IM Q30D 2 doses hydrocortisone 2.5% (Anusol-HC) 1 appl AR QID PRN hydroxyzine HCl 25 mg PO BID sennosides (Natural Senna Laxative) 8.6 mg PO BEDTIME trazodone 50 mg PO BEDTIME PRN 90 days [wedge pillow As directed] HPI HPI Comments History of Present Illness Details This is a 63-year-old male with alcoholic liver disease and mild recurrent major depression that comes for his Medicare annual wellness exam. Liver disease is follow by Gastroenterology. Depression is follow by Psychiatry and he denies any suicidal thoughts. Colonoscopy done 2018. PPP handed to patient. Complains of acute diarrhea that started few days ago associated with nausea and vomiting and he said he does not feel well. I will order stool samples. He also had abnormal mini-mental in which his drawing was incorrect and complains of some memory loss and I will refer him to Neurology. [facility] Medical History (Updated 03/13/24 @ 11:06 by Lexii López MD) Transaminitis Chronic GERD Mild recurrent major depression Screening for prostate cancer Chronic pain syndrome Sacroiliac joint dysfunction of right side Sacroiliitis Spondylosis of lumbar spine Bloody stools Lumbar pain Insomnia Hypovitaminosis D Mixed hyperlipidemia Gout Surgical History History of endoscopy History of colonoscopy Family History Father Hypertension Diabetes Mother No problems noted. Sister Breast cancer Substance use disorder Sister Complications of gastric bypass surgery Substance use disorder Other Mental health disorder Social History Housing: Apartment Alcohol intake: current Alcohol intake frequency: a few times a week Alcohol type: beer Patient Tobacco Use Status: Never used Tobacco e-Cigarette/Vaping Use: Never Used Second Hand Smoke Exposure: No service: No Current occupational status: unemployed Cognitive needs: No Hearing needs: No Vision needs: Yes Questionnaire Medicare Wellness Checkup [age] What gender do you identify with?: male During the past 4 weeks, how much have you been bothered by emotional problems such as feeling anxious, depressed, irritable, sad or downhearted, and blue?: moderately During the past 4 weeks, has your physical & emotional health limited your social activities with family, friends, neighbors, or groups?: slightly During the past 4 weeks, how much bodily pain have you generally had?: moderate pain During the past 4 weeks, was someone available to help you if you needed & wanted help?: yes, some During the past 4 weeks, what was the hardest physical activity you could do for at least 2 minutes?: heavy Can you get to places out of walking distance without help? (For eg., can you travel alone on buses, taxis or drive your car?): Yes Can you go shopping for groceries or clothes without someone's help?: No Can you prepare your own meals?: No Can you do your housework without help?: Yes Because of any health problems, do you need the help of another person with your personal care needs such as eating, bathing, dressing or getting around the house?: No Can you handle your own money without help?: Yes During the past 4 weeks, how would you rate your health in general?: good During the past 4 weeks how have things been going for you?: good & bad parts about equal Are you having difficulties driving your car?: not applicable, I don't use a car Do you always fasten your seat belt when you are in a car?: yes, usually During past 4 weeks, have you been bothered by the following: never: Sexual problems?, sometimes: Falling or dizzy when standing up and Trouble eating well? and often: Teeth or denture problems?, Problems using the telephone? and Tiredness or fatigue? Have you fallen 2 or more times in the past year?: No Are you afraid of falling?: Yes Are you a smoker?: no During the past 4 weeks, how many drinks of wine, beer, or other alcoholic beverages did you have?: 6-9 drinks per week Do you exercise for about 20 minutes 3 or more times a week?: no, I usually do not exercise this much Have you been given information to help with the following?: no: Hazards in your house that might hurt you? and no: Keeping track of your medications? How often do you have trouble taking medicines the way you have been told to take them?: I always take medicine as prescribed How confident are you that you can control & manage most of your health pr oblems?: somewhat confident What is your race?: or origin or descent Mini Mental State Exam (MMSE) Orientation What is the (year) (season) (date) (day) (month)?: year, season, date, day and month Where are we (state) (county) (town or city) (hospital) (floor)?: state, county, town or city, hospital/clinic and floor Registration Name of 3 unrelated objects clearly and slowly, then ask patient to repeat all 3 of them. (1st repeat determines score. Make sure they can repeat all three): object 1, object 2 and object 3 Attention & Calculation (CHOOSE ONE) Spell WORLD backwards (DLROW): 5 letters Recall Ask patient to repeat the 3 items from question #3.: object 1 Language Show patient a wristwatch & ask what it is. Repeat for pencil.: watch and pencil Ask the patient to repeat the phrase 'No ifs, ands, or buts' after you.: correct Ask the patient to 'take a piece of paper with their right hand' 'fold paper in half' 'place paper on floor': take paper in right hand, fold paper in half and place paper on floor Print the sentence 'CLOSE YOUR EYES' on a piece. If patient actually closes eyes then score.: followed written direction Give patient a blank piece of paper & ask to write a sentence. Score if it contains a noun & verb.: sentence contains subject and verb Score Score: 27 Activity of Daily Living Bathing - sponge bath, tub bath or shower: receives no assistance (gets in/out by self, if usual bathing means Dressing - getting clothes from closets & drawers, including inner/outer garments & fasteners.: gets clothes & gets completely dressed without help Toileting - going to the 'toilet room' for urine/bowel elimination & cleaning self/arranging clothes: goes to toilet room, cleans self, arranges clothes without help Transfer: moves in & out of bed and chair without help (may use support object) Continence: has occasional 'accidents' Feeding: feeds self without help Total Score: 0 Information obtained from: patient Using telephone: independent Traveling: independent Shopping: independent Preparing meals: needs assistance Housework: needs assistance Taking medicine: independent Managing money: independent PHQ-9 Over the last 2 weeks, how often have you been bothered by any of the following problems? 1. Little interest or pleasure in doing things: more than half the days 2. Feeling down, depressed, or hopeless: nearly every day 3. Trouble falling or staying asleep, or sleeping too much: nearly every day 4. Feeling tired or having little energy: nearly every day 5. Poor appetite or overeating: more than half the days 6. Feeling bad about yourself - or that you are a failure or have let yourself or your family down: not at all 7. Trouble concentrating on things, such as reading the newspaper or watching television: more than half the days 8. Moving or speaking so slowly that other people could have noticed. Or the opposite - being so fidgety or restless that you have been moving around a lot more than usual: several days 9. Thoughts that you would be better off or of hurting yourself in some way: not at all Total score: 16 Depression Screening Interpretation: Positive (no suicidal thoughts) Depression Screening Follow-up: Existing condition, In treatment, Community Mental Health Worker F/U and Follow-up Visit Requested Depression Screening Done: Yes 04520 - PHQ-9 Billing: Yes Source: Developed by Drs. Moisés L. JesseMary Jo fernández Kurt Kroenke and colleagues, with an educational danica from [employer]. ALEXANDRE-7 AMB Questionnaire ALEXANDRE-7 Date ALEXANDRE - 7 assessed: 03/12/24 Feeling nervous, anxious, or on edge: 3 = Nearly every day Not being able to stop or control worryin = Not at all Worrying too much about different things: 1 = Several days Trouble relaxin = Not at all Being so restless that it is hard to sit still: 1 = Several days Becoming easily annoyed or irritable: 3 = Nearly every day Feeling afraid as if something awful might happen: 0 = Not at all Total ALEXANDRE-7 score (0-4 normal; 5-9 mild; 10-14 moderate; 15-21 severe): 8 Source: Developed by Drs. Moisés Molina, Gregg Lopez and colleagues, with an educational danica from [employer]. ALEXANDRE-7 Assessment Billing ALEXANDRE-7 Assessment Tool: ALEXANDRE-7 Assessment 99875 Fall Risk Assessment Fall Risk Assessment Fall risk assessment: 1 Fall in past year Thrive Questionnaire Date Thrive assessed: 03/12/24 I am a: Patient What is your living situation today?: I have a steady place to live Within the past 12 months, did the food you bought not last and you didn't have the money to get more?: Never true Within the past 12 months, did you worry whether your food would run out before you got money to buy more?: Never true Do you have trouble paying for medicines?: No Do you have trouble getting transportation to medical appointments?: No Do you have trouble paying your heating and electricity bill?: No Do you have trouble taking care of your child, family member or friend?: No Do you have trouble with day-to-day activities such as bathing, preparing meals, shopping, managing finances, etc.?: No Are you currently unemployed and looking for a job?: No Are you interested in more education?: No Please select the resources that you would like help with: None Currently or been in a relationship where the following occur: No concerns reported THRIVE Score: 0 AUDIT C Alcohol Use Questionnaire (AUDIT-C) 1. How often do you have a drink containing alcohol?: 2-3 times a week 2. How many drinks containing alcohol do you have on a typical day when you are drinking?: 3 or 4 3. How often do you have six or more drinks on one occasion?: Weekly Total Score: 7 Score Reviewed/Action Taken: Yes Review of Systems Const All systems reviewed & are unremarkable except as noted in HPI and below Card Denies chest pain at rest, Denies chest pain with activity, Denies edema, Denies irregular heart rhythm, Denies claudication, Denies dyspnea, Denies dyspnea on exertion, Denies orthopnea, Denies paroxysmal nocturnal dyspnea and Denies slow heart rate Resp Denies cough, Denies dyspnea and Denies dyspnea on exertion GI Denies abdominal pain, Denies change in bowel habits, Denies excessive flatus, Reports diarrhea, Reports nausea and Reports vomiting Physical Exam Vital Signs: Last Vital Signs BP 132/70 03/12/24 14:17 BMI result Body Mass Index 32.4 Const Orientation/consciousness: patient oriented x3 Resp Effort & Inspection: normal respiratory effort Auscultation: clear to auscultation bilaterally Cardio Jugular venous distension: no JVD Rate: regular rate Rhythm: regular rhythm Heart sounds: S1 normal heart sound present and S2 normal heart sound present Neuro General: patient oriented x3 and no focal motor deficits Gait exam (Neuro): Assisted gait required (cane) Romberg Test: Negative Extrem General: Yes full ROM Assessment & Plan Assessment & Plan (1) Encounter for Medicare annual wellness exam: Code(s): Z00.00 - Encounter for general adult medical examination without abnormal findings Plan: Repeat in a year. (2) Mild recurrent major depression: Code(s): F33.0 - Major depressive disorder, recurrent, mild Plan: Continue bupropion. Follow-up with psychiatry. (3) Alcoholic liver disease: Code(s): K70.9 - Alcoholic liver disease, unspecified Plan: Follow-up with Gastroenterology. (4) Acute diarrhea: Code(s): R19.7 - Diarrhea, unspecified Plan: Stool samples ordered. (5) Abnormal mini-mental status exam: Code(s): F99 - Mental disorder, not otherwise specified Plan: Referred to neurology. Orders: Orders Ammonia 03/12/24 F99 - Mental disorder, not otherwise specified Syphilis Screen 03/12/24 F99 - Mental disorder, not otherwise specified CDiff Gene PCR 03/12/24 R19.7 - Diarrhea, unspecified Lipid Panel 03/12/24 E78.5 - Hyperlipidemia, unspecified Comprehensive [place]. Panel Fast 03/12/24 R74.01 - Elevation of levels of liver transaminase levels Thyroid Stimulating Hormone 03/12/24 F99 - Mental disorder, not otherwise specified Giardia Ag Stool EIA 03/12/24 R19.7 - Diarrhea, unspecified Leukocytes Stool Qualitative 03/12/24 R19.7 - Diarrhea, unspecified Referrals Neurology Referral F99 - Mental disorder, not otherwise specified, R41.3 - Other amnesia Quality Reporting (2019) Fall Risk Screening ([facility] 139) Fall risk assessment: 1 Fall in past year Depression/Bipolar (159/160/161/177) PHQ-9: Total score: 16 Coding Level of Care Code Medicare Subsequent (G0439) Est Pt Level 3 (16766) Diagnoses Encounter for Medicare annual wellness exam Z00.00 Mild recurrent major depression F33.0 Alcoholic liver disease K70.9 Acute diarrhea R19.7 Abnormal mini-mental status exam F99 Additional Codes ALEXANDRE-7 Assessment Billing - ALEXANDRE-7 Assessment Tool: ALEXANDRE-7 Assessment 57703 ([id number]) Time Spent (min) 40 Advance Care Planning Advance Care Planning discussion: Exists, not on file
== END 2024-03-12 14:47 | disposition home or self-care (01) ==
LOC: HO.HMGH 14:11
PROVIDERS: PCP Internal Medicine; Visit Provider Internal Medicine
DX: Z00.00 Encounter for general adult medical examination without abnormal findings (principal); F33.0 Major depressive disorder, recurrent, mild; K70.9 Alcoholic liver disease, unspecified; R19.7 Diarrhea, unspecified; F99 Mental disorder, not otherwise specified
CPT/HCPCS: 99213; G0439

== ENCOUNTER 2024-05-13 07:46 | Day surgery (SDC) | payer OTHER, SELFPAY ==
--- NOTE | 2024-05-12 10:18 | HO.ANESPROP2 ---
Documented by User: Dawna Cruz NP 05/12/24 10:21 HPI - Anesthesia Eval Consult details Narrative: 63yo M for Colonoscopy PMFSH Active Problems Active Problems: All Active Problems Encounter for Medicare annual wellness exam (Acute) Acute diarrhea (Acute) Abnormal mini-mental status exam (Acute) Memory loss (Acute) Chronic idiopathic constipation (Acute) Elevated transaminase level (Acute) Colon cancer screening (Acute) Alcoholic liver disease (Acute) Adult general medical exam (Acute) Dizziness (Acute) New daily persistent headache (Acute) Encounter for Medicare annual wellness exam (Acute) Transaminitis (Acute) Chronic GERD (Acute) Mild recurrent major depression (Acute) Screening for prostate cancer (Acute) Chronic pain syndrome (Acute) Sacroiliac joint dysfunction of right side (Acute) Spondylosis of lumbar spine (Acute) Bloody stools (Acute) Lumbar pain (Acute) Insomnia (Acute) Hypovitaminosis D (Acute) Mixed hyperlipidemia (Acute) Gout (Acute) Past Medical History Medical History (Updated 03/13/24 @ 11:06 by Lexii López MD) Transaminitis Chronic GERD Mild recurrent major depression Screening for prostate cancer Chronic pain syndrome Sacroiliac joint dysfunction of right side Sacroiliitis Spondylosis of lumbar spine Bloody stools Lumbar pain Insomnia Hypovitaminosis D Mixed hyperlipidemia Gout Family History Family History Father Hypertension Diabetes Mother No problems noted. Sister Breast cancer Substance use disorder Sister Complications of gastric bypass surgery Substance use disorder Other Mental health disorder Family history of problems with anesthesia: No Surgical History Surgical History History of endoscopy History of colonoscopy History of Problems with Anesthesia: No Social History Social History Housing: Apartment Are you a primary healthcare consultant to a significant other at home: No Do you presently have visiting nurse or other home services: No Alcohol intake: current Alcohol intake frequency: 3 or more drinks per day Alcohol type: beer Patient Tobacco Use Status: Never used Tobacco e-Cigarette/Vaping Use: Never Used Second Hand Smoke Exposure: No Use of substances other than those prescribed or required for medical reasons: No Have you been hit, kicked, punched, or otherwise hurt by someone within the past year? If so, by whom?: No Are you DNR?: No Advance Directives: No Advance Directives Information Provided: Yes Recently lost weight without trying: No service: No Current occupational status: unemployed Cognitive needs: No Hearing needs: No Vision needs: Yes Meds Allergies Allergy/AdvReac Type Severity Reaction Status Date / Time No Known Allergies Allergy Verified 03/12/24 14:29 [No Known Allergies*] Home Medications ?Medication ?Instructions ?Recorded ?Confirmed ?Last Taken ?Type acetaminophen 500 mg capsule 500 mg PO TID PRN Insomnia 03/01/21 03/12/24 Unknown History hydroxyzine HCl 25 mg tablet 25 mg PO BID 03/01/21 03/12/24 Unknown History fluoxetine 40 mg capsule 80 mg PO DAILY 05/09/21 03/12/24 Unknown History Assessment and Plan Assessment Anesthesia Assessment: Chart Reviewed Final Anesthetic Review Family History of Problems with Anesthesia: No History of Problems with Anesthesia: No Documented by User: Jamal Zuniga MD 05/13/24 09:38 [facility] Past Medical History Medical History (Updated 03/13/24 @ 11:06 by Lexii López MD) Transaminitis Chronic GERD Mild recurrent major depression Screening for prostate cancer Chronic pain syndrome Sacroiliac joint dysfunction of right side Sacroiliitis Spondylosis of lumbar spine Bloody stools Lumbar pain Insomnia Hypovitaminosis D Mixed hyperlipidemia Gout Family History Family History Father Hypertension Diabetes Mother No problems noted. Sister Breast cancer Substance use disorder Sister Complications of gastric bypass surgery Substance use disorder Other Mental health disorder Surgical History Surgical History History of endoscopy History of colonoscopy Social History Social History Housing: Apartment Are you a primary healthcare consultant to a significant other at home: No Do you presently have visiting nurse or other home services: No Alcohol intake: current Alcohol intake frequency: 3 or more drinks per day Alcohol type: beer Patient Tobacco Use Status: Never used Tobacco e-Cigarette/Vaping Use: Never Used Second Hand Smoke Exposure: No Use of substances other than those prescribed or required for medical reasons: No Have you been hit, kicked, punched, or otherwise hurt by someone within the past year? If so, by whom?: No Are you DNR?: No Advance Directives: No Advance Directives Information Provided: Yes Recently lost weight without trying: No service: No Current occupational status: unemployed Cognitive needs: No Hearing needs: No Vision needs: Yes Meds Allergies Allergy/AdvReac Type Severity Reaction Status Date / Time No Known Allergies Allergy Verified 03/12/24 14:29 [No Known Allergies*] Home Medications ?Medication ?Instructions ?Recorded ?Confirmed ?Last Taken ?Type acetaminophen 500 mg capsule 500 mg PO TID PRN Insomnia 03/01/21 03/12/24 Unknown History hydroxyzine HCl 25 mg tablet 25 mg PO BID 03/01/21 03/12/24 Unknown History fluoxetine 40 mg capsule 80 mg PO DAILY 05/09/21 03/12/24 Unknown History Exam Airway Mallampati Class: II TM Dist: <=3cm Neck ROM: Full Loose/Missing/Broken Teeth: No Heart: ok Lungs: ok Assessment and Plan Assessment Anesthesia Assessment: Anesthesia Plan Discussed Final Anesthetic Review NPO: Yes ASA Class: III Final Preanesthetic Review: No Changes in Pt Med Stat, Meds/Allgs Chart Reviewed, Consent Obtained/Reviewed and Anes Risks/Benef Reviewed Patient Risk: Intermediate Procedure Risk: Low Anesthetic Plan Anesthetic Plan: MAC: and Agree w/ Assess. and Plan Disposition: Standard PACU
[2024-05-13 08:14] VITALS: BMI 31.4
[2024-05-13] MEDS: Lactated Ringers 1,000 ML 100 ML IVCONT (08:24)
--- NOTE | 2024-05-13 08:50 | MHC.SHP ---
Pre-Procedural Eval Section A - 24 Hr Update-Section A only Date of Service: 05/13/24 Section B - Complete if H&P > 30 days Chief Complaint: Personal history of colonic polyps Relevant Family History (Specify if Yes): No Relevant Social History: Alcohol Use Present Medications: see Short Stay Collaborative assessment Medical History: Significant History (Transaminitis Chronic GERD Mild recurrent major depression Screening for prostate cancer Chronic pain syndrome Sacroiliac joint dysfunction of right side Sacroiliitis Spondylosis of lumbar spine Bloody stools Lumbar pain Insomnia Hypovitaminosis D Mixed hyperlipidemia Gout) History of Previous Operations: Relevant previous surgery/procedure and date(s) (History of endoscopy History of colonoscopy) Allergies: Allergies Allergy/AdvReac Type Severity Reaction Status Date / Time No Known Allergies Allergy Verified 03/12/24 14:29 [No Known Allergies*] Review of Systems Sugical H&P ROS: Negative: Constitution, Cardiovascular, Respiratory, Neurological, Psychiatric, Hem-Onc, Allergic/Immunologic, Gastrointestinal, Genitourinary, Musculoskeletal, Integumentary, Endocrine and Eyes/Ears/Nose/Throat Exam Surgical H&P Exam: Normal: HEENT, Normal: Heart, Normal: Lungs, Normal: Extremities, Normal: Abdomen, Normal: Skin and Normal: Neurological Plan Diagnosis/Plan: Unchanged I have reviewed the history and physical and performed a pertinent physical examination on my patient. No changes have occurred unless specified. Time Spent With Patient Time: Total time managing care of this patient today ____ minutes.
--- NOTE | 2024-05-13 09:16 | P.OPN-COLO_ITS ---
Colonoscopy Operative Note Operative Note Date of Service: 05/13/24 Narrative: Operative Information Procedure Description: Colonoscopy Indication: rectal bleeding Anesthesia: MAC COLONOSCOPY Instrument: Olympus variable stiffness pediatric scope 190L Colonoscopy Monitoring: Vital signs and clinical assessment, continuous EKG monitoring, Pulse oximetry, Carbon Dioxide monitoring and blood pressure monitoring were done throughout the procedure. Colon withdrawal time was 11 minutes. Procedure: The patient was placed in the left lateral decubitis position and pre-procedure medications were administered. After a digital rectal examination of the ano-rectum, the video colonoscope was inserted into the rectum and advanced through the colon to the cecum/TI. The colonoscope was slowly withdrawn in a retrograde panoramic fashion and the colon mucosa was carefully examined including a retroflexed view of the rectum. Findings and interventions are described below. Procedure Difficulty: easy Findings: Terminal Ileum-normal Cecum:normal right sided retroflexion- normal Ascending Colon: normal Transverse Colon - 5-6 mm sessile polyp removed with cold forceps, there was an area of persistent mucosal oozing, x 1 clip applied Descending Colon:normal Sigmoid Colon: normal Rectum: Retroflexion with small internal hemorrhoids seen, grade I Anorectum - normal Intervention: cold forceps Colon preparation: [place] Bowel Preparation Scale Right colon; 2 Transverse colon: 2 Left colon; 2 (0 = Unprepared colon segment with mucosa not seen due to solid stool that cannot be cleared. 1 = Portion of mucosa of the colon segment seen, but other areas of the colon segment not well seen due to staining, residual stool and/or opaque liquid. 2 = Minor amount of residual staining, small fragments of stool and/or opaque liquid, but mucosa of colon segment seen well. 3 = Entire mucosa of colon segment seen well with no residual staining, small fragments of stool or opaque liquid) Impression and Post Procedure Diagnosis: colon polyp internal hemorrhoids Plan: High fiber diet leaflet Avoid straining at stool, epsom salts and sitz bath, anusol supps or cream Repeat Colonoscopy in 5 years if adenomatous polyp, 10 yrs if benign or earlier if clinically indicated Above findings were reviewed with the patient and relevant handouts were provided if indicated.
[2024-05-13 09:57] VITALS: BP 107/62; PULSE 87; RESP 18; TEMP 36.9; O2SAT 97
[2024-05-13 10:10] VITALS: BP 142/69; PULSE 73; RESP 18; TEMP 36.6; O2SAT 97
== END 2024-05-13 10:27 | disposition home or self-care (01) ==
PROVIDERS: PCP Internal Medicine; Visit Provider Internal Medicine Gastroenterology
PROC: 0DJD8ZZ Inspection of Lower Intestinal Tract, Via Natural or Artificial Opening Endoscopic (ICD-10-PCS; CPT 45378; principal; 2024-05-13 09:10)
DX: Z12.11 Encounter for screening for malignant neoplasm of colon (principal); D12.3 Benign neoplasm of transverse colon; K64.0 First degree hemorrhoids; Z86.010 Personal history of colon polyps; E78.2 Mixed hyperlipidemia; K70.9 Alcoholic liver disease, unspecified
CPT/HCPCS: 45380; 88305; J2704

== ENCOUNTER → 2024-05-13 07:46 | Outpatient (BNV) | payer OTHER, SELFPAY | PROVIDERS: PCP Internal Medicine; Visit Provider Internal Medicine Gastroenterology | DX: K62.5 Hemorrhage of anus and rectum (principal); D12.3 Benign neoplasm of transverse colon; K64.0 First degree hemorrhoids | CPT/HCPCS: 45380 ==

== ENCOUNTER 2024-05-27 08:48 | Outpatient (AMB) | payer OTHER, SELFPAY ==
--- NOTE | 2024-05-27 09:12 | A.OFFVIS_ITS ---
Vital Signs 05/27/24 09:13 Height 5 ft 6 in Weight 195 lb 5.273 oz BMI 31.5 BP 124/80 Blood Pressure Location Rt brachial Position Sitting Pulse 90 Pulse Source Pulse Oximeter Pulse Oximetry (%) 99 Oxygen Delivery Method Room Air Intake Visit Reasons: S/P [place]; Dr. Yanez Intake Note: Oscar presents in office today for a scheduled s/p FUV. CC; pt has also been having additional concerns which were discussed via recent phone call. Please refer to the phone conversation notes below. Pt is comfortable with his understanding of the colonoscopy results, however; he is having moderate to severe pain and bleeding with the hemorrhoids. Pt is hoping that we can provide a medication for the hemorrhoids and the constipation he is experiencing and that is causing the hemorrhoid exacerbation. Pt does report that he has been using OTC hemorrhoid cream with some relief but not enough to resolve the pt's concerns. Manager Small Business Required: Yes Manager Small Business Services: Manager Small Business Present Manager Small Business Name: [id number] Nik Harris Information Interpreted: non-clinical & clinical Accompanied by: Self / Same As Patient Allergies No Known Allergies [No Known Allergies*] Allergy (Verified 05/27/24 09:14) HPI HPI S/P [place]; Dr. Yanez: Details: LAST VISIT Chronic idiopathic constipation Colon cancer screening Alcoholic liver disease Elevated transaminase level Chronic GERD GERD (gastroesophageal reflux disease) RUQ abdominal pain Plan Right upper quadrant tenderness, hyperactive bowels, biliary colic versus gas trapping pain. Patient reports that the pain is there all the time the med what he eats. Will send patient for HIDA scan. Patient reports to be constipated will increase senna to 2 tablets daily. Patient reports worse acid reflux throughout the day, change PPI to Nexium 40 mg daily. Patient can continue taking famotidine at bedtime. Patient reports no symptoms at night time. Discussed with patient avoiding dietary triggers and late night snacking. Staying upright for minimum 3 hours after meals discussed with patient. Patient will be sent for colonoscopy. We will make appointment for that today, however I will see patient in 6 weeks to re-evaluate and discuss HIDA scan. Patient is agreeable to this plan and verbalizes understanding of instructions. He was given the opportunity to ask questions and all questions answered. ? Thank you for allowing me to participate in his care Orders Orders NM hepatobiliary w pharm Today R10.11 Medications New esomeprazole magnesium (Nexium) 40 mg PO DAILY 30 caps 5RF K21.9 Changed Changed From sennosides (Natural Senna Laxative) Almita tableta cada noche 8.6 mg PO BEDTIME PRN 90 tabs 3RF constipation K59.00 Changed To sennosides (Natural Senna Laxative) Almita tableta cada noche 8.6 mg PO BEDTIME 90 tabs 3RF constipation K59.00 Discontinued pantoprazole take one tablet half an hour before breakfast Discontinued Reason: Doctor's Order 20 mg PO DAILY 30 tabs 2RF K21.9 COLONOSCOPY Findings: Terminal Ileum-normal Cecum:normal right sided retroflexion- normal Ascending Colon: normal Transverse Colon - 5-6 mm sessile polyp removed with cold forceps, there was an area of persistent mucosal oozing, x 1 clip applied Descending Colon:normal Sigmoid Colon: normal Rectum: Retroflexion with small internal hemorrhoids seen, grade I Anorectum - normal Intervention: cold forceps Colon preparation: Seffner Bowel Preparation Scale Right colon; 2 Transverse colon: 2 Left colon; 2 (0 = Unprepared colon segment with mucosa not seen due to solid stool that cannot be cleared. 1 = Portion of mucosa of the colon segment seen, but other areas of the colon segment not well seen due to staining, residual stool and/or opaque liquid. 2 = Minor amount of residual staining, small fragments of stool and/or opaque liquid, but mucosa of colon segment seen well. 3 = Entire mucosa of colon segment seen well with no residual staining, small fragments of stool or opaque liquid) Impression and Post Procedure Diagnosis: colon polyp internal hemorrhoids Plan: High fiber diet leaflet Avoid straining at stool, epsom salts and sitz bath, anusol supps or cream Repeat Colonoscopy in 5 years if adenomatous polyp, 10 yrs if benign or earlier if clinically indicated PATHOLOGY RESULTS Diagnosis Colon, transverse, polyp: Tubular adenoma; negative for high-grade dysplasia and carcinoma TODAY'S VISIT Patient is here today for follow-up and to discuss colonoscopy results. Patient denies any ill effects from the prep, anesthesia or procedure itself. Patient reports to be feeling better, however experiences rectal bleed after bowel m ovement at times. Patient was diagnosed with internal hemorrhoids 1 polyp in transverse colon biopsy showing tubular adenoma without high-grade dysplasia or carcinoma. Patient denies any rectal pain. Tried [id number] hemorrhoid cream however feels like it is not strong enough. Patient denies any melena. Patient reports that his symptoms of acid reflux has suppressed with Nexium. Patient is taking famotidine on as needed basis at night time. Reports that he is moving his bowels better now that he is taking senna and Colace, however does admit to straining at times. Patient admits that he might not drink enough water. Patient denies any other GI concerning symptoms. [facility] Medical History (Updated 05/27/24 @ 09:54 by Marisol Covarrubias, [facility]) Tubular adenoma of colon Transaminitis Chronic GERD Mild recurrent major depression Screening for prostate cancer Chronic pain syndrome Sacroiliac joint dysfunction of right side Sacroiliitis Spondylosis of lumbar spine Bloody stools Lumbar pain Insomnia Hypovitaminosis D Mixed hyperlipidemia Gout Surgical History History of endoscopy History of colonoscopy Family History Father Hypertension Diabetes Mother No problems noted. Sister Breast cancer Substance use disorder Sister Complications of gastric bypass surgery Substance use disorder Other Mental health disorder Social History Housing: Apartment Are you a primary customer care team coach to a significant other at home: No Do you presently have visiting nurse or other home services: No Alcohol intake: current Alcohol intake frequency: 3 or more drinks per day Alcohol type: beer Patient Tobacco Use Status: Never used Tobacco e-Cigarette/Vaping Use: Never Used Second Hand Smoke Exposure: No service: No Current occupational status: unemployed Cognitive needs: No Hearing needs: No Vision needs: Yes Review of Systems Const Denies weight gain and Denies weight loss Card Reports no additional complaints Resp Reports no additional complaints GI Denies abdominal pain, Denies belching, Denies melena, Denies bloating, Denies change in bowel habits, Denies excessive flatus, Denies dyspepsia, Denies heartburn, Denies diarrhea, Denies loose stools, Denies nausea and Denies vomiting Reports no additional complaints Musc Reports no additional complaints Neuro Reports no additional complaints Psych Reports no additional complaints Endo Reports no additional complaints Physical Exam Vital Signs: Last Vital Signs Pulse 90 05/27/24 09:13 BP 124/80 05/27/24 09:13 Pulse Ox 99 05/27/24 09:13 Oxygen Delivery Method Room Air 05/27/24 09:13 BMI result Body Mass Index 31.5 Results Reviewed Results Reviewed: HIDA SCAN FINDINGS: There is good concentration of activity in the liver by 5 minutes post injection. Biliary activity is visualized by 10 minutes. The gallbladder is well visualized by 20 minutes. Small bowel is well visualized by 20 minutes. At 60 minutes post radiopharmaceutical injection, a 30-minute infusion of 1.8 micrograms Sincalide was then begun and an additional 40 minutes of images were obtained. There is rapid emptying of the gallbladder. By the end of the study there is good clearance of activity from the liver and visualization of diffuse small bowel activity. The calculated gallbladder ejection fraction is 81% (Normal range of gallbladder ejection fraction is between 35-80%; GBEF <35% is considered biliary hypokinesia and >80% is considered biliary hyperkinesia; Ref. #1-Clinical Journal of Gastroenterology (2020) 14:1308?1317; Ref.#2-[email or web address]). NM/NM hepatobiliary w pharm IMPRESSION: Visualization of the gallbladder is evidence of a patent cystic duct and strong evidence against the diagnosis of acute cholecystitis. The common bile duct is patent. Gallbladder emptying and ejection fraction are abnormal. Liver function appears normal. Assessment & Plan Assessment & Plan (1) Chronic idiopathic constipation: Code(s): K59.04 - Chronic idiopathic constipation Category: Medical (2) Alcoholic liver disease: Code(s): K70.9 - Alcoholic liver disease, unspecified Category: Medical (3) Chronic GERD: Code(s): K21.9 - Gastro-esophageal reflux disease without esophagitis Category: Medical (4) Bloody stools: Code(s): K92.1 - Melena Category: Medical (5) Elevated transaminase level: Code(s): R74.01 - Elevation of levels of liver transaminase levels Category: Medical (6) Tubular adenoma of colon: Code(s): D12.6 - Benign neoplasm of colon, unspecified Category: Medical (7) Internal hemorrhoids without complication: Code(s): K64.8 - Other hemorrhoids Plan Avoid alcohol. High-protein, low salt low fat diet. Continue Nexium in the morning. May use famotidine at bedtime as needed. Avoid dietary triggers and late night snacking. Staying upright for minimum 3 hours after meals discussed with patient. Patient will continue taking senna and Colace. Increase fluid intake and activity to promote better bowel motility. Patient will return in 6 months we will repeat liver enzymes then. Colonoscopy in 5 years, sooner if clinically necessary. Patient is agreeable to this plan and verbalizes understanding of instructions. She was given the opportunity to ask questions and all questions answered. Thank you for allowing me to participate in his care Medications: New hydrocortisone 2.5% (Proctosol HC) 1 appl NV BID-QID PRN 30 grams 2RF hemorrhoids K64.9 - Unspecified hemorrhoids Refilled docusate sodium 100 mg PO BEDTIME 90 caps 3RF K59.00 - Constipation, unspecified sennosides (Natural Senna Laxative) Almita tableta cada noche 8.6 mg PO BEDTIME 90 tabs 3RF constipation K59.00 - Constipation, unspecified esomeprazole magnesium (Nexium) 40 mg PO DAILY 30 caps 5RF K21.9 - Gastro- esophageal reflux disease without esophagitis Coding Level of Care Code Est Pt Level 4 (26791) Diagnoses Chronic idiopathic constipation K59.04 Alcoholic liver disease K70.9 Chronic GERD K21.9 Bloody stools K92.1 Elevated transaminase level R74.01 Tubular adenoma of colon D12.6 Internal hemorrhoids without complication K64.8 Time Spent (min) 35 Comment 20 minutes spent with patient and additional 15 minutes spent reviewing his records
[2024-05-27 09:13] VITALS: BP 124/80; PULSE 90; O2SAT 99; BMI 31.5
== END 2024-05-27 10:16 | disposition home or self-care (01) ==
PROVIDERS: PCP Internal Medicine; Visit Provider Nurse Practitioner Family
DX: K59.04 Chronic idiopathic constipation (principal); K70.9 Alcoholic liver disease, unspecified; K21.9 Gastro-esophageal reflux disease without esophagitis; K92.1 Melena; R74.01 Elevation of levels of liver transaminase levels; D12.6 Benign neoplasm of colon, unspecified; K64.8 Other hemorrhoids
CPT/HCPCS: 99214

== ENCOUNTER → 2024-05-27 08:48 | Outpatient (BNVA) | payer OTHER, SELFPAY | PROVIDERS: PCP Internal Medicine; Visit Provider Nurse Practitioner Family | DX: K59.04 Chronic idiopathic constipation (principal); K70.9 Alcoholic liver disease, unspecified; K21.9 Gastro-esophageal reflux disease without esophagitis; K92.1 Melena; K64.8 Other hemorrhoids; R74.01 Elevation of levels of liver transaminase levels; D12.6 Benign neoplasm of colon, unspecified | CPT/HCPCS: 99212 ==

== ENCOUNTER 2024-09-23 09:33 | Outpatient (AMB) | payer OTHER, SELFPAY ==
--- NOTE | 2024-09-23 09:44 | MHC.OFFVIS ---
Vital Signs 09/23/24 09:45 Height 5 ft 6 in Weight 199 lb BMI 32.1 Intake Visit Reasons: INP-Amnesia Intake Note: Patient presents for amnesia Rfid Systems Engineer Services: Rfid Systems Engineer Present Rfid Systems Engineer Name: klaudia malone Information Interpreted: non-clinical & clinical Allergies No Known Allergies [No Known Allergies*] Allergy (Verified 09/23/24 09:50) Medication List - Last Reconciled 09/23/24 by Krysten Ovalle MD acetaminophen 500 mg PO TID PRN atorvastatin 80 mg PO BEDTIME 90 days bupropion HCl XL 150 mg PO QAM 90 days cholecalciferol (vitamin D3) 50 mcg PO DAILY 90 days docusate sodium 100 mg PO BEDTIME esomeprazole magnesium (Nexium) 40 mg PO DAILY famotidine (Pepcid) 20 mg PO BEDTIME fluoxetine 80 mg PO DAILY hepatitis B vacc-CpG 1018 (PF) 20 mcg/0.5 mL (Heplisav-B (PF)) 20 mcg (0.5 mL) IM Q30D 2 doses hydrocortisone 2.5% (Anusol-HC) 1 appl RI QID PRN hydrocortisone 2.5% (Proctosol HC) 1 appl RI BID-QID PRN hydroxyzine HCl 25 mg PO BID sennosides (Natural Senna Laxative) 8.6 mg PO BEDTIME trazodone mg PO [wedge pillow As directed] HPI Comments Details: 64y/o male comes for evaluation of memory issues. A certified medical front desk coordinator Klaudia Malone helped during this visit. His memory issues started about 6-9 months ago . The memory issues are mainly short term, forgets appointments, misplaces things, always searching for things at home, forgets conversations,has word finding difficulties, forgets to take his medications etc. He loses track of days in the week. He uses his PC and phone with no issues.He is independent in his ADLs.His daughter helps with taking care of his finacials. He stopped driving in 2010 due to his mood disorder. He had depression and anxiety -more in winter. SLeep- takes trazadone 150mg qhs. He reports difficulty falling and asleep, very restless at night, loud snoring, hypersomnia, gasping arousals. No restless legs during daytime [facility] Medical History (Updated 09/28/24 @ 07:26 by Krysten Ovalle MD) Nocturnal leg movements Hypersomnia Snoring Gait disorder Neck pain Cognitive impairment Tubular adenoma of colon Transaminitis Chronic GERD Mild recurrent major depression Screening for prostate cancer Chronic pain syndrome Sacroiliac joint dysfunction of right side Sacroiliitis Spondylosis of lumbar spine Bloody stools Lumbar pain Insomnia Hypovitaminosis D Mixed hyperlipidemia Gout Surgical History History of endoscopy History of colonoscopy Family History Father Hypertension Diabetes Mother No problems noted. Sister Breast cancer Substance use disorder Sister Complications of gastric bypass surgery Substance use disorder Other Mental health disorder Social History Housing: Apartment Are you a primary manager medicare marketing to a significant other at home: No Do you presently have visiting nurse or other home services: No Alcohol intake: current Alcohol intake frequency: 3 or more drinks per day Alcohol type: beer Patient Tobacco Use Status: Never used Tobacco e-Cigarette/Vaping Use: Never Used Second Hand Smoke Exposure: No service: No Current occupational status: unemployed Cognitive needs: No Hearing needs: No Vision needs: Yes Physical Exam Vital Signs: BMI result Body Mass Index 32.1 Const General: cooperative, healthy appearing and comfortable Nutritional Appearance: overweight Orientation/consciousness: patient oriented x3 Eyes Pupils: Equal, round and reactive pupils present Neuro General: patient oriented x3, gait normal, tone normal, moves all extremities and no focal motor deficits Cranial nerves: Yes Facial sensation intact/muscles of mastication intact, Yes Equal, round and reactive pupils present, Yes Bilaterally intact EOM present, Yes Nystagmus not present, Yes Normal facial strength present, Yes Midline tongue present, Yes Symmetric palate elevation present and Yes Ability to bilaterally elevate shoulders present Cognition (Neuro): normal cognition Gait exam (Neuro): Normal gait present Motor exam (neuro): 5/5 motor strength present throughout and Normal motor muscle tone present throughout Orientation What is the (year) (season) (date) (day) (month)?: year, season, date, day and month Where are we (state) (county) (town or city) (hospital) (floor)?: state, county, town or city, hospital/clinic and floor Registration Name of 3 unrelated objects clearly and slowly, then ask patient to repeat all 3 of them. (1st repeat determines score. Make sure they can repeat all three): object 1, object 2 and object 3 Attention & Calculation (CHOOSE ONE) Spell WORLD backwards (DLROW): 5 letters Recall Ask patient to repeat the 3 items from question #3.: object 3 Language Show patient a wristwatch & ask what it is. Repeat for pencil.: watch and pencil Ask the patient to 'take a piece of paper with their right hand' 'fold paper in half' 'place paper on floor': take paper in right hand and fold paper in half Print the sentence 'CLOSE YOUR EYES' on a piece. If patient actually closes eyes then score.: followed written direction Give patient a blank piece of paper & ask to write a sentence. Score if it contains a noun & verb.: sentence contains subject and verb Ask patient to copy figure of intersecting pentagons exactly. Score if all 10 angles & 2 intersects are included.: all 10 angles present & 2 are intersected Score Score: 26 Results Reviewed Results Reviewed: MRI brain 2021- . Multiple nonspecific white matter lesions in the cerebral hemispheres and some minimal T2 hyperintensities in the veronica, which probably reflect chronic ischemic microangiopathy in the absence of any other specific known risk factors. 2. No acute intracranial process. No evidence for infarction, hemorrhage, extra-axial fluid collection, space-occupying process, mass effect or hydrocephalus. Assessment & Plan Assessment & Plan (1) Cognitive impairment: Comment: ? mild cognitive impairment - vascular Code(s): R41.89 - Other symptoms and signs involving cognitive functions and awareness Category: Medical (2) Neck pain: Code(s): M54.2 - Cervicalgia Category: Medical (3) Gait disorder: Code(s): R26.9 - Unspecified abnormalities of gait and mobility Category: Medical (4) Snoring: Code(s): R06.83 - Snoring Category: Medical (5) Hypersomnia: Code(s): G47.10 - Hypersomnia, unspecified Category: Medical (6) Nocturnal leg movements: Code(s): R25.8 - Other abnormal involuntary movements Category: Medical Plan I will evaluate him with MRI brain to r/o structural lesions Labs - for reversible causes of cognitive impairment and leg movements SLeep study for sleep apnea and sleep associated movement disorders Orders: Orders MR cervical spine wo con 09/23/24 M54.2 - Cervicalgia, R20.2 - Paresthesia of skin, R26.9 - Unspecified abnormalities of gait and mobility, R53.1 - Weakness RT PSG in-lab sleep study 09/23/24 G47.10 - Hypersomnia, unspecified, R06.83 - Snoring, R25.8 - Other abnormal involuntary movements Vitamin B12 and Folate 09/23/24 R41.89 - Other symptoms and signs involving cognitive functions and awareness Vitamin D 25-OH (D2 and D3) 09/23/24 R41.89 - Other symptoms and signs involving cognitive functions and awareness MR brain wo con w neuroquant 09/23/24 M54.2 - Cervicalgia, R20.2 - Paresthesia of skin, R26.9 - Unspecified abnormalities of gait and mobility, R41.89 - Other symptoms and signs involving cognitive functions and awareness, R53.1 - Weakness Complete Blood Count Auto Diff 09/23/24 R41.89 - Other symptoms and signs involving cognitive functions and awareness Erythrocyte Sedimentation Rate 09/23/24 R41.89 - Other symptoms and signs involving cognitive functions and awareness Coding Level of Care Code New Pt Level 4 (63489) Complex EM visit Add On G2211 Diagnoses Cognitive impairment R41.89 Neck pain M54.2 Gait disorder R26.9 Snoring R06.83 Hypersomnia G47.10 Nocturnal leg movements R25.8
[2024-09-23 09:45] VITALS: BMI 32.1
== END 2024-09-23 10:41 | disposition home or self-care (01) ==
PROVIDERS: PCP Internal Medicine; Visit Provider Psychiatry & Neurology Neurology
DX: R41.89 Other symptoms and signs involving cognitive functions and awareness (principal); M54.2 Cervicalgia; R26.9 Unspecified abnormalities of gait and mobility; R06.83 Snoring; G47.10 Hypersomnia, unspecified; R25.8 Other abnormal involuntary movements
CPT/HCPCS: 99204; G2211

== ENCOUNTER 2024-09-23 09:33 | Outpatient (REF) | payer OTHER, SELFPAY ==
[2024-09-23 17:41] LABS: MANUAL DIFF FLAG NO
[2024-09-23 17:49] LABS: Basophils Percent Auto 0.6 % (0-2); Eosinophils Absolute Auto 0.1 X10*3/uL (0.0-0.4); Eosinophils Percent Auto 1.9 % (0-4); Hematocrit 41.1 % (42.0-52.0); Hemoglobin 13.4 g/dl (14.0-18.0); Imm Gran Abs Auto 0.01 X10*3/uL (0.00-0.03); Imm Gran Pct Auto 0.1 % (0.0-0.4); Lymphocytes Absolute Auto 2.4 X10*3/uL (1.2-4.9); Lymphocytes Percent Auto 35.5 % (20-40); Mean Corpuscular HGB Conc 32.6 g/dl (31.0-36.0); Mean Corpuscular Hemoglobin 33.3 pg (27.0-33.0); Mean Corpuscular Volume 102.2 fL (80.0-98.0); Mean Platelet Volume 11.2 fL (9.4-12.4); Monocytes Absolute Auto 0.6 X10*3/uL (0.1-1.2); Monocytes Percent Auto 8.5 % (2-11); Neutrophils Absolute Auto 3.6 x10*3/uL (2.0-8.3); Neutrophils Percent Auto 53.4 % (45-73); Platelet Count 221 X10*3/uL (160-400); Red Blood Count 4.02 X10*6/uL (4.60-5.80); Red Cell Distribution Width 13.2 % (11.0-16.0); White Blood Count 6.7 X10*3/uL (4.8-10.8)
[2024-09-23 18:36] LABS: Folate 10.6 ng/mL (> or = 4.0); Vitamin B12 214 pg/mL (200-900)
[2024-09-23 18:40] LABS: Erythrocyte Sedimentation Rate 2 MM/HR (0-15)
[2024-09-27 15:54] LABS: Vitamin D 25-OH, D2 <4 ng/mL; Vitamin D 25-OH, D3 24 ng/mL; Vitamin D 25-OH, Total 24 ng/mL (30-100)
== END 2024-09-23 09:34 | disposition home or self-care (01) ==
LOC: HO.HKASLDS 09:33
PROVIDERS: PCP Internal Medicine; Visit Provider Psychiatry & Neurology Neurology
DX: R41.89 Other symptoms and signs involving cognitive functions and awareness (principal); M54.2 Cervicalgia; R26.9 Unspecified abnormalities of gait and mobility; R06.83 Snoring; G47.10 Hypersomnia, unspecified; R25.8 Other abnormal involuntary movements
CPT/HCPCS: 36415; 82306; 82607; 82746; 85025; 85652

== ENCOUNTER → 2024-09-30 08:59 | Outpatient (BNVA) | payer OTHER, SELFPAY | PROVIDERS: PCP Internal Medicine; Visit Provider Internal Medicine | DX: E53.8 Deficiency of other specified B group vitamins (principal); K70.9 Alcoholic liver disease, unspecified; F33.0 Major depressive disorder, recurrent, mild; K21.9 Gastro-esophageal reflux disease without esophagitis; R41.89 Other symptoms and signs involving cognitive functions and awareness; I10 Essential (primary) hypertension; E78.5 Hyperlipidemia, unspecified; Z79.899 Other long term (current) drug therapy | CPT/HCPCS: 90471; 96127 ==

== ENCOUNTER → 2024-10-20 10:34 | Outpatient (BNV) | payer OTHER, SELFPAY | PROVIDERS: PCP Internal Medicine; Visit Provider Radiology Diagnostic Radiology | DX: M47.812 Spondylosis without myelopathy or radiculopathy, cervical region (principal); G95.9 Disease of spinal cord, unspecified; M25.78 Osteophyte, vertebrae; I67.82 Cerebral ischemia; J01.90 Acute sinusitis, unspecified; R41.89 Other symptoms and signs involving cognitive functions and awareness; R29.6 Repeated falls | CPT/HCPCS: 70551; 72141 ==

== ENCOUNTER 2024-10-20 10:36 | Outpatient (REF) | payer OTHER, SELFPAY ==
--- NOTE | ~2024-10-20 | MR_ITS ---
EXAMINATION: MR BRAIN WITHOUT CONTRAST; NeuroQuant CLINICAL INFORMATION: Other signs and symptoms involving cognitive awareness. Memory issues. Multiple falls. COMPARISON: 03/15/2022 MR brain. TECHNIQUE: Multiplanar multisequence MR imaging of the brain was done without IV contrast. Examination performed on a 1.5 Kanika Siemens unit without IV contrast. Data was sent to the 3-D lab workstation for neuroquantitative analysis and reporting. FINDINGS: There is no diffusion restriction. There is no intracranial hemorrhage, acute infarction, mass effect, or edema. Ventricles, sulci, and cisterns are subjectively normal in size and configuration for patient age. No shift of midline. No abnormal hemosiderin deposition is identified. There are a few scattered punctate and minimally confluent foci of white matter T2 hyperintensity in the periventricular, subcortical, and hemispheric deep white matter and central veronica, nonspecific, but statistically most likely sequela of small vessel ischemia. Midline structures appear normally formed. There is a partial empty sella. There is no evidence of callosal atrophy or posterior fossa atrophy. There is mild ossification of the anterior and superior falx. Posterior fossa structures appear normal. Cerebellar tonsils are appropriately located. Major flow voids are preserved within the skull base. The globes and orbital contents demonstrate no abnormalities. There is a moderate-sized mucous retention cyst present in the dependent left maxillary antrum. There is trace mucosal thickening dependent right maxillary sinus. Patchy mild to moderate mucosal thickening in the right posterior and anterior ethmoid sinuses. No air-fluid levels. Nasal septum is midline without spur. The mastoids and tympanic cavities are normally aerated. Extracranial soft tissues demonstrate no abnormalities. No suspicious bone marrow changes are evident. There is mild hyperostosis frontalis internus. Atlantoaxial joint demonstrate mild degenerative arthritis. No craniocervical Junction narrowing. MR/MR brain wo con w neuroquant IMPRESSION: 1. No evidence of intracranial hemorrhage, acute infarction, mass effect, or edema. 2. Mild small vessel ischemic changes of the white matter. No significant interval changes in these findings. 3. Mild paranasal sinus disease. 4. Ancillary findings as discussed in the body of report. 4. Please refer to the the separate printed neuroquantitative analysis attached to this study. Electronically signed by: Mohsen Reyes MD 10/21/2024 09:57 AM [facility]
--- NOTE | ~2024-10-20 | MR_ITS ---
EXAMINATION: MR CERVICAL SPINE WITHOUT CONTRAST CLINICAL INFORMATION: Paresthesia of the skin COMPARISON: None available. TECHNIQUE: MRI of the cervical spine was obtained using routine sequences without contrast. FINDINGS: Craniocervical junction is intact. No bone marrow STIR signal abnormality. Multilevel disc desiccation. The alignment is normal. There is a focal, 5 mm mixed hypoechoic and hyperintense STIR signal in the region of the spinal cord at T1-2 level only seen on the sagittal STIR sequence. C2-3: No disc herniation. No neuroforamina stenosis. C3-4: Central disc osteophyte complex formation. No cord compression. No cord signal abnormality. Bilateral neuroforamina narrowing on a degenerative basis. C4-5: Central disc osteophyte complex formation. No cord compression. No neuroforamina stenosis. C5-6: Broad-based disc osteophyte complex formation. No cord compression. No cord signal abnormality. Facet joint hypertrophy. Bilateral neuroforamina narrowing. C6-7: Central disc osteophyte complex formation. No cord compression. No cord signal abnormality. No neuroforamina stenosis. C7-T1: No disc herniation. No neuroforamina stenosis. No prevertebral compartment hematoma mass or fluid collection. Flow-void signal within the main vessels is normal. Codominant vertebral arteries. Bilateral prominent nonspecific cervical lymph nodes. There is a 1.5 cm retention cysts versus polyp in the left maxillary sinus. MR/MR cervical spine wo con IMPRESSION: Apparent focal STIR signal within the spinal cord at T1-2 which could be artifactual. Recommend dedicated MRI thoracic spine exam. Multilevel cervical spondylosis without cord compression, disc herniation. Electronically signed by: Mathew Rolon MD 10/21/2024 07:54 AM EST
== END 2024-10-20 10:37 | disposition home or self-care (01) ==
LOC: HO.MRI 10:36
PROVIDERS: PCP Internal Medicine; Visit Provider Psychiatry & Neurology Neurology
DX: R20.2 Paresthesia of skin (principal); R53.1 Weakness; M54.2 Cervicalgia; R26.9 Unspecified abnormalities of gait and mobility; R41.89 Other symptoms and signs involving cognitive functions and awareness
CPT/HCPCS: 70551; 72141; 76377

== ENCOUNTER → 2024-10-26 19:30 | Outpatient (BNV) | payer OTHER, SELFPAY | PROVIDERS: PCP Internal Medicine; Visit Provider Psychiatry & Neurology Neurology | DX: G47.33 Obstructive sleep apnea (adult) (pediatric) (principal) | CPT/HCPCS: 95810 ==

== ENCOUNTER → 2024-10-26 19:30 | Outpatient (REF) | payer OTHER, SELFPAY | LOC: HO.SL 19:30 | PROVIDERS: PCP Internal Medicine; Visit Provider Psychiatry & Neurology Neurology | DX: R06.83 Snoring (principal); G47.10 Hypersomnia, unspecified; R25.8 Other abnormal involuntary movements | CPT/HCPCS: 95810 ==

== ENCOUNTER 2024-11-18 10:00 | Outpatient (AMB) | payer OTHER, SELFPAY ==
[2024-11-18 11:12] VITALS: PULSE 70; O2SAT 96; BMI 31.7
--- NOTE | 2024-11-18 11:12 | MHC.OFFVIS ---
Vital Signs 11/18/24 11:12 Height 5 ft 6 in Weight 196 lb 8 oz BMI 31.7 Pulse 70 Pulse Source Pulse Oximeter Pulse Oximetry (%) 96 Oxygen Delivery Method Room Air Intake Visit Reasons: 2 mnts f/u Intake Note: Patient presents for 2 month follow up. MRI of both cervical spine and brain in chart and done on 10/20/24. [employer] Required: Yes [employer] Name: Page [id number] Information Interpreted: clinical only Allergies No Known Allergies [No Known Allergies*] Allergy (Verified 11/18/24 11:14) HPI Comments Details: 64y/o male comes for evaluation of Cognitive Decline. A certified certified court/medical interpreter on IPAD Page [id number] helped during this visit. 10/2023 Titration Study AHI was 59/hr and O2 Baron to 85%. BIPAP with Large Airtouch F20 mask. Difficulty falling asleep, and sleeps for 6-7 hours. His memory issues started about 6-9 months ago. He goes to bed at 11 and wakes up at 6am with 2 bathroom breaks. He snores loudly and talks in his sleep, denies parasomnia. RLS symptoms bilaterally with numbness, tingling, and an unusual sensation travels up, with cramps and spasms in both feet. The memory issues are mainly short term, forgets appointments, misplaces things, always searching for things at home, forgets conversations, has word finding difficulties, forgets to take his medications etc. He loses track of days in the week. He uses his PC and phone with no issues. He is independent in his ADLs.His daughter helps with taking care of his finacials. He stopped driving in 2010 due to his mood disorder. He has depression and anxiety more in winter and around [place]. Sleep has always been difficult for him he takes Trazadone 150mg qhs. He reports difficulty falling and asleep, very restless at night, loud snoring, hypersomnia, gasping arousals. No restless legs during daytime. [facility] Medical History Nocturnal leg movements Hypersomnia Snoring Gait disorder Neck pain Cognitive impairment Tubular adenoma of colon Transaminitis Chronic GERD Mild recurrent major depression Screening for prostate cancer Chronic pain syndrome Sacroiliac joint dysfunction of right side Sacroiliitis Spondylosis of lumbar spine Bloody stools Lumbar pain Insomnia Hypovitaminosis D Mixed hyperlipidemia Gout Surgical History History of endoscopy History of colonoscopy Family History Father Hypertension Diabetes Mother No problems noted. Sister Breast cancer Substance use disorder Sister Complications of gastric bypass surgery Substance use disorder Other Mental health disorder Social History Housing: Apartment Are you a primary health and social care teacher to a significant other at home: No Do you presently have visiting nurse or other home services: No Alcohol intake: current Alcohol intake frequency: 3 or more drinks per day Alcohol type: beer Patient Tobacco Use Status: Never used Tobacco e-Cigarette/Vaping Use: Never Used Second Hand Smoke Exposure: No service: No Current occupational status: unemployed Cognitive needs: No Hearing needs: No Vision needs: Yes Review of Systems Const All systems reviewed & are unremarkable except as noted in HPI and below Physical Exam Vital Signs: Last Vital Signs Pulse 70 11/18/24 11:12 Pulse Ox 96 11/18/24 11:12 Oxygen Delivery Method Room Air 11/18/24 11:12 BMI result Body Mass Index 31.7 Const General: cooperative, healthy appearing and comfortable Nutritional Appearance: overweight Orientation/consciousness: patient oriented x3 Eyes Pupils: Equal, round and reactive pupils present Neuro General: patient oriented x3, gait normal, tone normal, moves all extremities and no focal motor deficits Cranial nerves: Yes Facial sensation intact/muscles of mastication intact, Yes Equal, round and reactive pupils present, Yes Bilaterally intact EOM present, Yes Nystagmus not present, Yes Normal facial strength present, Yes Midline tongue present, Yes Symmetric palate elevation present and Yes Ability to bilaterally elevate shoulders present Cognition (Neuro): normal cognition Gait exam (Neuro): Normal gait present Motor exam (neuro): 5/5 motor strength present throughout and Normal motor muscle tone present throughout Results Reviewed Results Reviewed: MR/MR brain wo con w neuroquant IMPRESSION: 1. No evidence of intracranial hemorrhage, acute infarction, mass effect, or edema. 2. Mild small vessel ischemic changes of the white matter. No significant interval changes in these findings. 3. Mild paranasal sinus disease. 4. Ancillary findings as discussed in the body of report. 4. Please refer to the the separate printed neuro-quantitative analysis attached to this study. Cervical MRI 09/2024 MR/MR cervical spine wo con IMPRESSION: Apparent focal STIR signal within the spinal cord at T1-2 which could be artifactual. Recommend dedicated MRI thoracic spine exam. Multilevel cervical spondylosis without cord compression, disc herniation. Assessment & Plan Assessment & Plan (1) Neck pain: Code(s): M54.2 - Cervicalgia Category: Medical (2) Hypovitaminosis D: Code(s): E55.9 - Vitamin D deficiency, unspecified Category: Medical (3) Insomnia: Code(s): G47.00 - Insomnia, unspecified Category: Medical Qualifiers: Insomnia type: unspecified Qualified Code(s): G47.00 - Insomnia, unspecified (4) Alcoholic liver disease: Code(s): K70.9 - Alcoholic liver disease, unspecified Category: Medical (5) Snoring: Code(s): R06.83 - Snoring Category: Medical (6) Nocturnal leg movements: Code(s): R25.8 - Other abnormal involuntary movements Category: Medical (7) Dizziness: Code(s): R42 - Dizziness and giddiness Category: Medical Plan 09/2024 MRI cognitive decline Reviewed Brain: changes of white matter and small vessel ischemia. Cervical spine MRI today Spondylosis, T1 and Multilevel degenerative changes. Radiologist Recommended Thoracic Spine MRI Sleep Titration Reviewed with Patient and Bipap with Large Air Touch F20 mask, order is sent. Labs Reviewed Anemic, B12 and Vit D is low, patient will reconvene is seeing GI for chronic Hemorrhoids and bleeding. Discussed Mood and Alcohol use with possibilty of seeing therapist 3x a month and decreasing 6pack of Beer every other day to 3 cans every other day, he is working with a therapist. Orders: Orders MR thoracic spine wo/w con Today M54.2 - Cervicalgia, R42 - Dizziness and giddiness Patient Instructions: Sleep Hygiene provided: set a scheduled bedtime and wake time to help regulate the circadian rhythm and balance the release of pituitary hormones. Sleep in a dark room, temperatures below 68 degrees, and no devices n bed. Limit caffeinated products 6 hours prior to bed, and limit fluids 2-4 hours prior to bed. Gentle night yoga, diffusing essential oils, and playing soft music can be relaxing. AUD Explained Liver Disease to patient and he is open to decreasing alcohol intake. Bipap order sent today and Large Mask, Airtouch F20, AHI was 59 and O2 Baron to 85%. Hypo-vitaminosis D and B12 continue. Will f/u in 3 months for compliance of Bipap Therapy. Coding Level of Care Code Est Pt Level 4 (88393) Complex EM visit Add On G2211 Diagnoses Neck pain M54.2 Hypovitaminosis D E55.9 Insomnia, unspecified type G47.00 Insomnia type: unspecified Alcoholic liver disease K70.9 Snoring R06.83 Nocturnal leg movements R25.8 Dizziness R42 Time Spent (min) 30 Comment Improving
== END 2024-11-18 12:04 | disposition home or self-care (01) ==
LOC: HO.HSMS 10:01
PROVIDERS: PCP Internal Medicine; Visit Provider Physician Assistant Medical
DX: M54.2 Cervicalgia (principal); E55.9 Vitamin D deficiency, unspecified; G47.00 Insomnia, unspecified; K70.9 Alcoholic liver disease, unspecified; R06.83 Snoring; R25.8 Other abnormal involuntary movements; R42 Dizziness and giddiness
CPT/HCPCS: 99214; G2211

== ENCOUNTER → 2024-11-18 10:00 | Outpatient (BNVA) | payer OTHER, SELFPAY | PROVIDERS: PCP Internal Medicine; Visit Provider Physician Assistant Medical ==

== ENCOUNTER 2024-11-23 10:58 | Outpatient (REF) | payer MEDICARE, SELFPAY ==
[2024-11-23 14:55] LABS: Alanine Aminotransferase 44 U/L (0-40); Alkaline Phosphatase 77 U/L (39-117); Aspartate Amino Transferase 41 U/L (5-37); Bilirubin Direct 0.4 mg/dL (0.0-0.5); Bilirubin Total 1.6 mg/dL (0.0-1.0); Lipase 30 U/L (8-78); Total Protein 6.5 g/dL (6.5-8.0)
== END 2024-11-23 10:59 | disposition home or self-care (01) ==
LOC: HO.LAB 10:58
PROVIDERS: PCP Internal Medicine; Visit Provider Nurse Practitioner Family
DX: R74.01 Elevation of levels of liver transaminase levels (principal); R10.12 Left upper quadrant pain; K59.04 Chronic idiopathic constipation; K70.9 Alcoholic liver disease, unspecified; K21.9 Gastro-esophageal reflux disease without esophagitis; E55.9 Vitamin D deficiency, unspecified
CPT/HCPCS: 36415; 80076; 83690

== ENCOUNTER 2024-11-23 10:58 | Outpatient (AMB) | payer OTHER, SELFPAY ==
[2024-11-23 11:14] VITALS: BP 111/58; PULSE 79; O2SAT 99; BMI 31.6
--- NOTE | 2024-11-23 11:14 | A.OFFVIS_ITS ---
Vital Signs 11/23/24 11:14 Height 5 ft 6 in Weight 196 lb BMI 31.6 BP 111/58 L Blood Pressure Location Lt brachial Position Sitting Pulse 79 Pulse Oximetry (%) 99 Oxygen Delivery Method Room Air Intake Visit Reasons: 6 mos FUV. Intake Note: Patient 6 month follow up for GERD and Constipation. Patient cc: hard stool with rectal bleeding every other date, dark stool on and off, acid reflex, some swallowing difficulty with his medication in the morning, he have to drink liquid first to be able to swallow the med and also LUQ pain near case ribs. Night Court Magistrate Required: Yes Night Court Magistrate Name: Ronal Walton LM Accompanied by: Self / Same As Patient Allergies No Known Allergies [No Known Allergies*] Allergy (Verified 11/23/24 11:13) HPI HPI 6 mos FUV.: Details: LAST VISIT: hronic idiopathic constipation Alcoholic liver disease Chronic GERD Bloody stools Elevated transaminase level Tubular adenoma of colon Internal hemorrhoids without complication Plan Avoid alcohol. High-protein, low salt low fat diet. Continue Nexium in the morning. May use famotidine at bedtime as needed. Avoid dietary triggers and late night snacking. Staying upright for minimum 3 hours after meals discussed with patient. Patient will continue taking senna and Colace. Increase fluid intake and activity to promote better bowel motility. Patient will return in 6 months we will repeat liver enzymes then. Colonoscopy in 5 years, sooner if clinically necessary. Patient is agreeable to this plan and verbalizes understanding of instructions. She was given the opportunity to ask questions and all questions answered. ? Thank you for allowing me to participate in his care Medications New hydrocortisone 2.5% (Proctosol HC) 1 appl GA BID-QID PRN 30 grams 2RF hemorrhoids K64.9 Refilled docusate sodium 100 mg PO BEDTIME 90 caps 3RF K59.00 sennosides (Natural Senna Laxative) Almita tableta cada noche 8.6 mg PO BEDTIME 90 tabs 3RF constipation K59.00 esomeprazole magnesium (Nexium) 40 mg PO DAILY 30 caps 5RF K21.9 TODAY'S VISIT Patient is here today for follow-up. Patient reports to be feeling fairly well. Symptoms of acid reflux are suppressed for the most part. Takes Nexium every morning and famotidine at bedtime. Patient reports left upper quadrant pain not related to meals. Patient states that the pain is on and off cramping like pain. Patient uses senna as needed 1 tablet proximally every couple days. Admits feeling like he does not empty his bowels completely. Patient denies any melena, hematochezia, unintentional weight loss or ribbon like stools. Admits to drinking alcohol, minimum 3 beers a daily. [facility] Medical History Nocturnal leg movements Hypersomnia Snoring Gait disorder Neck pain Cognitive impairment Tubular adenoma of colon Transaminitis Chronic GERD Mild recurrent major depression Screening for prostate cancer Chronic pain syndrome Sacroiliac joint dysfunction of right side Sacroiliitis Spondylosis of lumbar spine Bloody stools Lumbar pain Insomnia Hypovitaminosis D Mixed hyperlipidemia Gout Surgical History History of endoscopy History of colonoscopy Family History Father Hypertension Diabetes Mother No problems noted. Sister Breast cancer Substance use disorder Sister Complications of gastric bypass surgery Substance use disorder Other Mental health disorder Social History Housing: Apartment Are you a primary care team coordinator scheduler to a significant other at home: No Do you presently have visiting nurse or other home services: No Alcohol intake: current Alcohol intake frequency: 3 or more drinks per day Alcohol type: beer Patient Tobacco Use Status: Never used Tobacco e-Cigarette/Vaping Use: Never Used Second Hand Smoke Exposure: No service: No Current occupational status: unemployed Cognitive needs: No Hearing needs: No Vision needs: Yes Review of Systems Const Denies weight gain and Denies weight loss Card Reports no additional complaints Resp Reports no additional complaints GI Denies abdominal pain, Denies belching, Denies melena, Denies bloating, Denies change in bowel habits, Denies excessive flatus, Denies dyspepsia, Denies heartburn, Denies diarrhea, Denies loose stools, Denies nausea and Denies vomiting Reports no additional complaints Musc Reports no additional complaints Neuro Reports no additional complaints Psych Reports no additional complaints Endo Reports no additional complaints Physical Exam Vital Signs: Last Vital Signs Pulse 79 11/23/24 11:14 BP 111/58 L 11/23/24 11:14 Pulse Ox 99 11/23/24 11:14 Oxygen Delivery Method Room Air 11/23/24 11:14 BMI result Body Mass Index 31.6 Const General: healthy appearing, no acute distress and well developed Nutritional Appearance: well nourished Orientation/consciousness: patient oriented x3 Resp Effort & Inspection: normal respiratory effort, able to speak in complete sentences, no tracheal deviation and symmetric chest movement Auscultation: clear to auscultation bilaterally Cardio Rate: regular rate GI Inspection: Yes normal to inspection, No distended and Yes obesity Palpation (GI): Soft to palpation, not firm, nontender and No hepatosplenomegaly present Auscultation: Hyperactive bowel sounds present General: Yes no CVA tenderness Back/Spine/Pelvis Back: no CVA tenderness Skin General skin exam: elasticity normal, turgor normal and dry skin Neuro General: patient oriented x3 Psych Appearance: grossly normal Mental Status: mental status grossly normal Assessment & Plan Assessment & Plan (1) Chronic idiopathic constipation: Code(s): K59.04 - Chronic idiopathic constipation Category: Medical (2) Elevated transaminase level: Code(s): R74.01 - Elevation of levels of liver transaminase levels Category: Medical (3) Alcoholic liver disease: Code(s): K70.9 - Alcoholic liver disease, unspecified Category: Medical (4) Chronic GERD: Code(s): K21.9 - Gastro-esophageal reflux disease without esophagitis Category: Medical (5) Hypovitaminosis D: Code(s): E55.9 - Vitamin D deficiency, unspecified Category: Medical (6) Abdominal pain, LUQ (left upper quadrant): Code(s): R10.12 - Left upper quadrant pain Plan Continue Nexium daily and famotidine at bedtime. Avoid dietary triggers and late night snacking. Patient was encouraged alcohol abstinence. Increase fluid intake and activity to promote better bowel motility. Patient can take to senna daily to help her move his bowels better. Patient was encouraged to get his blood work done today. Will send him for ultrasound with liver elastography. Will check lipase. Patient does drink alcohol daily. Follow-up in 6 months, sooner on as needed basis. He is agreeable to this plan and verbalizes understanding of instructions. He was given the opportunity to ask questions and all questions answered Thank you for allowing me to participate in his care Orders: Orders Liver Panel 11/23/24 R74.01 - Elevation of levels of liver transaminase levels Lipase 11/23/24 R10.9 - Unspecified abdominal pain US abdomen guy w elastography 11/23/24 K76.0 - Fatty (change of) liver, not elsewhere classified Medications: Changed From sennosides Almita tableta cada noche 8.6 mg PO BEDTIME 90 tabs 3RF constipation K59.00 - Constipation, unspecified To sennosides (Natural Senna Laxative) dos tabletas cada noche 17.2 mg (2 x 8.6 mg) PO BEDTIME 180 tabs 3RF constipation K59.00 - Constipation, unspecified Refilled famotidine (Pepcid) 20 mg PO BEDTIME 90 tabs 3RF K21.9 - Gastro-esophageal reflux disease without esophagitis Coding Level of Care Code Est Pt Level 4 (89883) Complex EM visit Add On G2211 Diagnoses Chronic idiopathic constipation K59.04 Elevated transaminase level R74.01 Alcoholic liver disease K70.9 Chronic GERD K21.9 Hypovitaminosis D E55.9 Abdominal pain, LUQ (left upper quadrant) R10.12 Time Spent (min) 35 Comment 25 minutes spent with patient and additional 10 minutes spent reviewing his records
== END 2024-11-23 12:20 | disposition home or self-care (01) ==
LOC: HO.HGI 10:58
PROVIDERS: PCP Internal Medicine; Visit Provider Nurse Practitioner Family
DX: K59.04 Chronic idiopathic constipation (principal); R74.01 Elevation of levels of liver transaminase levels; K70.9 Alcoholic liver disease, unspecified; K21.9 Gastro-esophageal reflux disease without esophagitis; E55.9 Vitamin D deficiency, unspecified; R10.12 Left upper quadrant pain
CPT/HCPCS: 99214; G2211

== ENCOUNTER 2024-12-23 12:38 | Outpatient (REF) | payer MEDICARE, SELFPAY ==
--- NOTE | ~2024-12-23 | MR_ITS ---
EXAMINATION: MR THORACIC SPINE WITHOUT CONTRAST CLINICAL INFORMATION: Abnormal findings on diagnostic imaging of other parts COMPARISON: None available. TECHNIQUE: MRI of the thoracic spine was obtained using routine sequences without contrast. FINDINGS: There is abnormal number of the vertebral bodies. The vertebral bodies with the ribs labeled accordingly as 12 vertebral bodies. There is mild bone marrow STIR signal in the inferior endplate of the labeled T6 vertebral body and likely the left transverse processes. Multilevel disc desiccation. Multilevel marginal osteophyte formation. The alignment is normal. No gross volume loss throughout the vertebral bodies. The thoracic spinal cord caliber and signal is normal. There is no cord compression from the T1-T12. The conus medullaris ends at superior endplate of T12 level. No prevertebral compartment hematoma, mass or fluid collection. MR/MR thoracic spine wo con IMPRESSION: Multilevel thoracic spondylosis. No cord compression, cord edema and or myelopathy. Mild acute to subacute inflammatory degenerative process at the inferior endplate of T6 and left transverse process of T6. Electronically signed by: Mathew Rolon MD 12/24/2024 01:37 PM EDT
== END 2024-12-23 12:39 | disposition home or self-care (01) ==
LOC: HO.MRI 12:38
PROVIDERS: PCP Internal Medicine; Visit Provider Physician Assistant Medical
DX: R93.7 Abnormal findings on diagnostic imaging of other parts of musculoskeletal system (principal)
CPT/HCPCS: 72146

== ENCOUNTER → 2024-12-23 12:49 | Outpatient (BNV) | payer MEDICARE, SELFPAY | PROVIDERS: PCP Internal Medicine; Visit Provider Radiology Diagnostic Radiology | DX: M47.814 Spondylosis without myelopathy or radiculopathy, thoracic region (principal) | CPT/HCPCS: 72146 ==

== ENCOUNTER 2025-02-16 09:32 | Outpatient (AMB) | payer OTHER, SELFPAY ==
[2025-02-16 09:40] VITALS: BP 132/70; PULSE 104; O2SAT 98; BMI 31.7
--- NOTE | 2025-02-16 09:40 | A.OFFVIS_ITS ---
Vital Signs 02/16/25 09:40 Height 5 ft 6 in Weight 196 lb 8 oz BMI 31.7 BP 132/70 Blood Pressure Location Lt brachial Position Sitting Pulse 104 H Pulse Source Pulse Oximeter Pulse Oximetry (%) 98 Oxygen Delivery Method Room Air Intake Visit Reasons: 3 mnts f/u appt Intake Note: Patient presents follow up Neck pain/Sleep. 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 10/2023 Titration Study AHI was 59/hr and O2 Baron to 85%. BIPAP with Large Airtouch F20 mask. [facility] compliance report 10/2024- 01/2025 total use 34/90 days and 38% >4 hours 9 days total avg use daily 1 hour and 8min IPAP [id number] and EPAP [id number] Leaks 63median and AHI is 7.9/hr He requested masks from [employer] and still has not received his new mask and this makes it difficult for him to use his cpap machine consistently. 10/2024 started BIPAP with new pressures. He has difficulty falling asleep, restless at night, with gasping arousals, he talks and snores loudly, even with trazadone 100mg po 1.5 tablet, he sleeps for 6-7 hours. Will take 6mg of melatonin. Denies parasomnias. His STM is poor, memory issues started about 6-9 months ago, forgets alot especially tasks appointments, misplaces things. He forgets converstaions and forgets to take his medications. Now he says he loses track of days of the week. He uses his PC and phone with no issues. He is independent in his ADLs. His daughter helps with taking care of his finances. RLS symptoms bilaterally with numbness, tingling, and an unusual sensation travels up the ankles to shins, with cramps and spasms in both feet. He stopped driving in 2010 due to his mood disorder, and is taking Buprprion. He has depression and anxiety more in winter and around [place]. He continues to drink daily, we discussed tapering. MMSE is 26. [facility] Medical History Nocturnal leg movements Hypersomnia Snoring Gait disorder Neck pain Cognitive impairment Tubular adenoma of colon Transaminitis Chronic GERD Mild recurrent major depression Screening for prostate cancer Chronic pain syndrome Sacroiliac joint dysfunction of right side Sacroiliitis Spondylosis of lumbar spine Bloody stools Lumbar pain Insomnia Hypovitaminosis D Mixed hyperlipidemia Gout Surgical History History of endoscopy History of colonoscopy Family History Father Hypertension Diabetes Mother No problems noted. Sister Breast cancer Substance use disorder Sister Complications of gastric bypass surgery Substance use disorder Other Mental health disorder Social History (Reviewed 02/16/25 @ 09:42 by Luz Rivera [facility]) Housing: Apartment Are you a primary attending ambulatory care to a significant other at home: No Do you presently have visiting nurse or other home services: No Alcohol intake: current Alcohol intake frequency: 3 or more drinks per day Alcohol type: beer Patient Tobacco Use Status: Never used Tobacco e-Cigarette/Vaping Use: Never Used Second Hand Smoke Exposure: No service: No Current occupational status: unemployed Cognitive needs: No Hearing needs: No Vision needs: Yes Physical Exam Vital Signs: Last Vital Signs Pulse 104 H 02/16/25 09:40 BP 132/70 02/16/25 09:40 Pulse Ox 98 02/16/25 09:40 Oxygen Delivery Method Room Air 02/16/25 09:40 BMI result Body Mass Index 31.7 Const General: cooperative, healthy appearing and comfortable Nutritional Appearance: overweight Orientation/consciousness: patient oriented x3 Eyes Pupils: Equal, round and reactive pupils present Neuro General: patient oriented x3, gait normal, tone normal, moves all extremities and no focal motor deficits Cranial nerves: Yes Facial sensation intact/muscles of mastication intact, Yes Equal, round and reactive pupils present, Yes Bilaterally intact EOM present, Yes Nystagmus not present, Yes Normal facial strength present, Yes Midline tongue present, Yes Symmetric palate elevation present and Yes Ability to bilaterally elevate shoulders present Cognition (Neuro): normal cognition Gait exam (Neuro): Normal gait present Motor exam (neuro): 5/5 motor strength present throughout and Normal motor muscle tone present throughout Psych Appearance: well kempt Thought process: Other thought process findings present (language barrier) Orientation What is the (year) (season) (date) (day) (month)?: year, season, date, day and month Where are we (state) (county) (town or city) (hospital) (floor)?: state, county, town or city, hospital/clinic and floor Registration Name of 3 unrelated objects clearly and slowly, then ask patient to repeat all 3 of them. (1st repeat determines score. Make sure they can repeat all three): object 1, object 2 and object 3 Attention & Calculation (CHOOSE ONE) Spell WORLD backwards (DLROW): 3 letters Recall Ask patient to repeat the 3 items from question #3.: object 1, object 2 and object 3 Language Show patient a wristwatch & ask what it is. Repeat for pencil.: watch and pencil Ask the patient to repeat the phrase 'No ifs, ands, or buts' after you.: incorrect Ask the patient to 'take a piece of paper with their right hand' 'fold paper in half' 'place paper on floor': take paper in right hand, fold paper in half and place paper on floor Print the sentence 'CLOSE YOUR EYES' on a piece. If patient actually closes eyes then score.: followed written direction Give patient a blank piece of paper & ask to write a sentence. Score if it contains a noun & verb.: sentence contains subject and verb Score Score: 26 Results Reviewed Results Reviewed: ERIC compliance report 10/2024- 01/2025 total use 34/90 days and 38% >4 hours 9 days total avg use daily 1 hour and 8min IPAP [id number] and EPAP [id number] Leaks 63median and AHI is 7.9/hr Assessment & Plan Assessment & Plan (1) ERIC treated with BiPAP: Comment: new order sent to [facility] for mask/ Code(s): G47.33 - Obstructive sleep apnea (adult) (pediatric) Category: Medical (2) Hypovitaminosis D: Code(s): E55.9 - Vitamin D deficiency, unspecified Category: Medical (3) Insomnia: Comment: melatonin 6mg and trazadone 150mg Code(s): G47.00 - Insomnia, unspecified Category: Medical Qualifiers: Insomnia type: unspecified Qualified Code(s): G47.00 - Insomnia, unspecified (4) Alcoholic liver disease: Code(s): K70.9 - Alcoholic liver disease, unspecified Category: Medical Plan: cerefolin AUD? Mild cognitive impairment MMSE is 26 / lanuage barrier (5) Snoring: Code(s): R06.83 - Snoring Category: Medical (6) Nocturnal leg movements: Comment: ? PLMD Code(s): R25.8 - Other abnormal involuntary movements Category: Medical (7) Cognitive impairment: Comment: ? mild cognitive impairment - vascular Code(s): R41.89 - Other symptoms and signs involving cognitive functions and awareness Category: Medical Plan [facility] 09/2024 MRI cognitive decline Reviewed Brain: changes of white matter and small vessel ischemia. ERIC 10/2024 Titration Reviewed with Patient and Bipap I25/E22 with Large Air Touch F20 mask, order is sent to [facility] Cognitive Decline AUD discussed tapering Alcohol use, MMSE 26, will start Cerfolin 1capsule daily by mouth Discussed Mood and Alcohol and therapist 3x a month and decreasing 6pack of Beer every other day to 3 cans every other day, he is working with a therapist. F/U in 3 months Medications: New njvwtzdpww-vibzisi-[id number]-mefolate 600-2-6 mg (Cerefolin Brain Wellness) take one tablet daily by mouth at bedtime for 90 days. 1 tab PO BEDTIME 90 tabs 0RF cognitive decline 90 days MDD 1 tablet R41.89 - Other symptoms and signs involving cognitive functions and awareness Patient Instructions: Sleep Hygiene provided: set a scheduled bedtime and wake time to help regulate the circadian rhythm and balance the release of pituitary hormones. Sleep in a dark room, temperatures below 68 degrees, and no devices n bed. Limit caffeinated products 6 hours prior to bed, and limit fluids 2-4 hours prior to bed. Gentle night yoga, diffusing essential oils, and playing soft music can be relaxing. Compliance is emphasized today and >4 hours daily. Wash mask, hoses and change filters and water daily. Coding Level of Care Code Est Pt Level 4 (73954) Diagnoses ERIC treated with BiPAP G47.33 Hypovitaminosis D E55.9 Insomnia, unspecified type G47.00 Insomnia type: unspecified Alcoholic liver disease K70.9 Snoring R06.83 Nocturnal leg movements R25.8 Cognitive impairment R41.89 Time Spent (min) 30
== END 2025-02-16 10:25 | disposition home or self-care (01) ==
LOC: HO.HSMS 09:33
PROVIDERS: PCP Internal Medicine; Visit Provider Physician Assistant Medical
DX: G47.33 Obstructive sleep apnea (adult) (pediatric) (principal); E55.9 Vitamin D deficiency, unspecified; G47.00 Insomnia, unspecified; K70.9 Alcoholic liver disease, unspecified; R06.83 Snoring; R25.8 Other abnormal involuntary movements; R41.89 Other symptoms and signs involving cognitive functions and awareness
CPT/HCPCS: 99214

== ENCOUNTER 2025-02-17 10:21 | Outpatient (REF) | payer OTHER, SELFPAY ==
--- NOTE | ~2025-02-17 | US_ITS ---
EXAMINATION: US ABDOMEN LIMITED WITH LIVER ELASTOGRAPHY HISTORY: K76.0 - Fatty (change of) liver, not elsewhere classified TECHNIQUE: Real-time grayscale ultrasound imaging of the right upper quadrant was performed and images were reviewed. COMPARISON: Comparison is made with the prior examination dated 10/12/2022. FINDINGS: Liver: The right lobe of the liver measures 14.4 cm in size. The left lobe of the liver measures 8.8 cm in size. The liver demonstrates increased echotexture, consistent with steatosis. There is a 1.1 cm cyst adjacent to the gallbladder. No intrahepatic biliary ductal dilatation is identified. There is normal hepatopedal flow in the portal vein. Ultrasound elastography of the liver was performed with 10 separate measurements of the liver parenchyma with the patient in the supine position. Measurements were obtained approximately 2 cm below Marlin's capsule and perpendicular to the capsule. The median shear wave velocity is 0.89 m/s. The interquartile range/median (IQR/median) is 0.13. Gallbladder and biliary tree: The gallbladder is unremarkable, without evidence of calculi, wall thickening, or pericholecystic fluid. There is no sonographic Suh sign. The common bile duct is normal in caliber measuring 4 mm. Right Kidney: The right kidney measures 9.0 cm in length. The right kidney is unremarkable, without evidence of masses, hydronephrosis, or calculi. Pancreas: The pancreatic head, neck, and body are unremarkable. The pancreatic tail is obscured by bowel gas. Abdominal aorta and inferior vena cava: The visualized portions of the abdominal aorta and inferior vena cava are normal in caliber. There is no free fluid in the right upper quadrant. US/US abdomen guy w elastography IMPRESSION: Hepatic steatosis. Otherwise unremarkable right upper quadrant ultrasound. The median shear wave velocity in the liver is 0.89 m/s, corresponding to a median liver stiffness of 2.4 kPa. The IQR/median value is 0.13. This is indicative of a quality data set. Findings are indicative of a normal elastography value with a low likelihood of severe fibrosis or cirrhosis. REFERENCE: Society of Radiologists in Ultrasound Liver Stiffness Thresholds (2020): LIVER STIFFNESS THRESHOLDS: *Shear wave velocity less than 1.3 m/s (Liver Stiffness equal or less than 5 kPa): High probability of being normal. *Shear wave velocity less than 1.7 m/s (Liver Stiffness less than 9 kPa): In the absence of other known clinical signs, rules out compensated advanced chronic liver disease. *Shear wave velocity between 1.7-2.1 m/s (Liver Stiffness 9-13 kPa): Suggestive of compensated advanced chronic liver disease but need further test for confirmation. *Shear wave velocity between 2.1-2.4 m/s (Liver Stiffness 13-17 kPa): Rules in compensated advanced chronic liver disease. *Shear wave velocity greater than 2.4 m/s (Liver Stiffness over 17 kPa): Suggestive of clinically significant portal hypertension. QUALITY OF DATA SET: *IQR/Median value equal or less than 0.30 implies a quality data set. *IQR/Median value over 0.30 implies a poor quality data set. SIGNIFICANT CHANGE FROM PRIOR EXAM: Significant change if liver stiffness measurement is 10% or greater from prior exam. OTHER CONSIDERATIONS: The stage of liver fibrosis may be overestimated in the setting of acute hepatitis, liver inflammation, elevated liver function tests, hepatic vascular congestion, obstructive cholestasis, non-fasting state, and infiltrative diseases such as amyloidosis and lymphoma. In some patients with NAFLD, the liver stiffness thresholds for compensated advanced chronic liver disease may be lower. In causes other than viral hepatitis and NAFLD, liver stiffness thresholds are not well established. Electronically signed by: Moisés Ocampo MD 02/17/2025 11:23 AM EDT
== END 2025-02-17 10:22 | disposition home or self-care (01) ==
LOC: HO.US 10:21
PROVIDERS: PCP Internal Medicine; Visit Provider Nurse Practitioner Family
DX: K76.0 Fatty (change of) liver, not elsewhere classified (principal)
CPT/HCPCS: 76705; 76981

== ENCOUNTER → 2025-02-17 10:24 | Outpatient (BNV) | payer OTHER, SELFPAY | PROVIDERS: PCP Internal Medicine; Visit Provider Radiology Diagnostic Radiology | DX: K76.0 Fatty (change of) liver, not elsewhere classified (principal) | CPT/HCPCS: 76705; 76981 ==

== ENCOUNTER 2025-03-24 12:20 | Outpatient (AMB) | payer MEDICARE, SELFPAY ==
--- NOTE | 2025-03-24 12:36 | AM.OFFVISMDC ---
Intake Vital Signs 03/24/25 12:37 Height 5 ft 6 in Weight 198 lb BMI 32.0 BP 108/70 Blood Pressure Location Lt brachial Position Sitting Intake Visit Reasons: SWV G0439 Intake Note: Patient here for a subsequent annual wellness visit Inside Sales Account Representative Required: No Accompanied by: Self / Same As Patient Allergies No Known Allergies (No Known Allergies*) Allergy (Verified 03/24/25 13:26) Medication List - Last Reconciled 03/24/25 by Lexii López MD acetaminophen 500 mg PO TID PRN pqwxgppaha-ocoterp-U-mefolate 600-2-6 mg (Cerefolin Brain Wellness) 1 tab PO BEDTIME 90 days MDD 1 tablet atorvastatin 80 mg PO BEDTIME 90 days bupropion HCl XL 150 mg PO QAM 90 days cholecalciferol (vitamin D3) 50 mcg PO DAILY 90 days docusate sodium 100 mg PO BEDTIME esomeprazole magnesium 40 mg PO DAILY famotidine (Pepcid) 20 mg PO BEDTIME fluoxetine 80 mg PO DAILY folic acid 1 mg PO DAILY 90 days hepatitis B vacc-CpG 1018 (PF) 20 mcg/0.5 mL (Heplisav-B (PF)) 20 mcg (0.5 mL) IM Q30D 2 doses hydrocortisone 2.5% (Proctosol HC) 1 appl HI BID-QID PRN hydroxyzine HCl 25 mg PO BID mecobalamin (vitamin B12) 1,000 mcg PO DAILY 90 days sennosides (Natural Senna Laxative) 17.2 mg (2 x 8.6 mg) PO BEDTIME trazodone mg PO [wedge pillow As directed] HPI HPI Comments History of Present Illness Details Ppp handed to patient. Parlin or care reviewed and updated. The patient is a 64-year-old male presenting with a Medicare wellness exam. He received a tetanus vaccine in 2016 and is due for a pneumonia vaccine, which is recommended for individuals over 65 years of age. The patient has a history of depression, for which he is currently taking bupropion and fluoxetine. He also reports using trazodone for sleep disturbances associated with his depression. The patient experiences constipation, managed with docusate and senna. He also takes omeprazole and famotidine for gastroesophageal reflux disease (GERD). He has a history of sleep apnea, for which he has been evaluated and treated. The patient reports occasional urinary incontinence, specifically with urine. In terms of family history, his father had diabetes and hypertension, while his mother had no significant health issues. Socially, the patient does not smoke but consumes alcohol, approximately a beer daily. He is independent in most activities of daily living but does not cook or shop for himself. [facility] Medical History (Updated 03/24/25 @ 13:45 by Lexii López MD) Nocturnal leg movements Hypersomnia Snoring Gait disorder Neck pain Cognitive impairment Tubular adenoma of colon Transaminitis Chronic GERD Mild recurrent major depression Screening for prostate cancer Chronic pain syndrome Sacroiliac joint dysfunction of right side Sacroiliitis Spondylosis of lumbar spine Bloody stools Lumbar pain Insomnia Hypovitaminosis D Mixed hyperlipidemia Gout Surgical History History of endoscopy History of colonoscopy Family History Father Hypertension Diabetes Mother No problems noted. Sister Breast cancer Substance use disorder Sister Complications of gastric bypass surgery Substance use disorder Other Mental health disorder Social History Housing: Apartment Are you a primary vehicle care specialist to a significant other at home: No Do you presently have visiting nurse or other home services: No Alcohol intake: current Alcohol intake frequency: 3 or more drinks per day Alcohol type: beer Patient Tobacco Use Status: Never used Tobacco e-Cigarette/Vaping Use: Never Used Second Hand Smoke Exposure: No service: No Current occupational status: unemployed Cognitive needs: No Hearing needs: No Vision needs: Yes Questionnaire Medicare Wellness Checkup What [age] What gender do you identify with?: male During the past 4 weeks, how much have you been bothered by emotional problems such as feeling anxious, depressed, irritable, sad or downhearted, and blue?: slightly During the past 4 weeks, has your physical & emotional health limited your social activities with family, friends, neighbors, or groups?: slightly During the past 4 weeks, how much bodily pain have you generally had?: mild pain During the past 4 weeks, was someone available to help you if you needed & wanted help?: yes, as much as I wanted During the past 4 weeks, what was the hardest physical activity you could do for at least 2 minutes?: moderate Can you get to places out of walking distance without help? (For eg., can you travel alone on buses, taxis or drive your car?): Yes Can you go shopping for groceries or clothes without someone's help?: No Can you prepare your own meals?: No Can you do your housework without help?: No Because of any health problems, do you need the help of another person with your personal care needs such as eating, bathing, dressing or getting around the house?: No Can you handle your own money without help?: Yes During the past 4 weeks, how would you rate your health in general?: fair During the past 4 weeks how have things been going for you?: good & bad parts about equal Are you having difficulties driving your car?: not applicable, I don't use a car Do you always fasten your seat belt when you are in a car?: yes, usually During past 4 weeks, have you been bothered by the following: never: Teeth or denture problems?, seldom: Problems using the telephone?, sometimes: Tiredness or fatigue?, often: Falling or dizzy when standing up and Trouble eating well? and always: Sexual problems? Have you fallen 2 or more times in the past year?: Yes Are you afraid of falling?: Yes Are you a smoker?: no During the past 4 weeks, how many drinks of wine, beer, or other alcoholic beverages did you have?: 6-9 drinks per week Do you exercise for about 20 minutes 3 or more times a week?: yes, some of the time Have you been given information to help with the following?: no: Hazards in your house that might hurt you? and no: Keeping track of your medications? How often do you have trouble taking medicines the way you have been told to take them?: I always take medicine as prescribed How confident are you that you can control & manage most of your health problems?: not very confident What is your race?: or origin or descent Mini Mental State Exam (MMSE) Orientation What is the (year) (season) (date) (day) (month)?: year, season, date, day and month Where are we (state) (county) (town or city) (hospital) (floor)?: state, county, town or city, hospital/clinic and floor Registration Name of 3 unrelated objects clearly and slowly, then ask patient to repeat all 3 of them. (1st repeat determines score. Make sure they can repeat all three): object 1, object 2 and object 3 Attention & Calculation (CHOOSE ONE) Spell WORLD backwards (DLROW): 5 letters Recall Ask patient to repeat the 3 items from question #3.: object 1 and object 2 Language Show patient a wristwatch & ask what it is. Repeat for pencil.: watch and pencil Ask the patient to repeat the phrase 'No ifs, ands, or buts' after you.: correct Ask the patient to 'take a piece of paper with their right hand' 'fold paper in half' 'place paper on floor': take paper in right hand, fold paper in half and place paper on floor Print the sentence 'CLOSE YOUR EYES' on a piece. If patient actually closes eyes then score.: followed written direction Give patient a blank piece of paper & ask to write a sentence. Score if it contains a noun & verb.: sentence contains subject and verb Score Score: 28 Activity of Daily Living Bathing - sponge bath, tub bath or shower: receives no assistance (gets in/out by self, if usual bathing means Dressing - getting clothes from closets & drawers, including inner/outer garments & fasteners.: gets clothes & gets completely dressed without help Toileting - going to the 'toilet room' for urine/bowel elimination & cleaning self/arranging clothes: goes to toilet room, cleans self, arranges clothes without help Transfer: moves in & out of bed and chair without help (may use support object) Continence: has occasional 'accidents' Feeding: feeds self without help Total Score: 0 Information obtained from: patient Using telephone: independent Traveling: independent Shopping: dependent Preparing meals: dependent Housework: dependent Taking medicine: independent Managing money: independent PHQ-9 Over the last 2 weeks, how often have you been bothered by any of the following problems? 1. Little interest or pleasure in doing things: several days 2. Feeling down, depressed, or hopeless: more than half the days 3. Trouble falling or staying asleep, or sleeping too much: nearly every day 4. Feeling tired or having little energy: more than half the days 5. Poor appetite or overeating: more than half the days 6. Feeling bad about yourself - or that you are a failure or have let yourself or your family down: several days 7. Trouble concentrating on things, such as reading the newspaper or watching television: nearly every day 8. Moving or speaking so slowly that other people could have noticed. Or the opposite - being so fidgety or restless that you have been moving around a lot more than usual: not at all 9. Thoughts that you would be better off or of hurting yourself in some way: not at all Total score: 14 Depression Screening Interpretation: Positive Depression Screening Follow-up: Existing condition, In treatment, Community Mental Health Worker F/U and Follow-up Visit Requested Depression Screening Done: Yes 32749 - PHQ-9 Billing: Yes Source: Developed by Drs. Moisés Molina, Mary Jo Irvin, Gregg Salazar and colleagues, with an educational danica from [employer]. Fall Risk Assessment Fall Risk Assessment Fall risk assessment: No Falls in past year AUDIT C Alcohol Use Questionnaire (AUDIT-C) 1. How often do you have a drink containing alcohol?: 2-3 times a week 2. How many drinks containing alcohol do you have on a typical day when you are drinking?: 5 or 6 3. How often do you have six or more drinks on one occasion?: Weekly Total Score: 8 Score Reviewed/Action Taken: Yes ALEXANDRE-7 AMB Questionnaire ALEXANDRE-7 Date ALEXANDRE - 7 assessed: 03/24/25 Feeling nervous, anxious, or on edge: 3 = Nearly every day Not being able to stop or control worryin = Not at all Worrying too much about different things: 1 = Several days Trouble relaxin = Several days Being so restless that it is hard to sit still: 1 = Several days Becoming easily annoyed or irritable: 1 = Several days Feeling afraid as if something awful might happen: 0 = Not at all Total ALEXANDRE-7 score (0-4 normal; 5-9 mild; 10-14 moderate; 15-21 severe): 7 Source: Developed by Drs. Moisés Molina, Mary Jo Irvin, Gregg Salazar and colleagues, with an educational danica from [employer]. ALEXANDRE-7 Assessment Billing ALEXANDRE-7 Assessment Tool: ALEXANDRE-7 Assessment 21092 Thrive Questionnaire Date Thrive assessed: 09/30/24 I am a: Patient What is your living situation today?: I have a steady place to live THRIVE Score: 0 Review of Systems Const All systems reviewed & are unremarkable except as noted in HPI and below Card Denies chest pain at rest, Denies chest pain with activity, Denies edema, Denies irregular heart rhythm, Denies claudication, Denies dyspnea, Denies dyspnea on exertion, Denies orthopnea, Denies paroxysmal nocturnal dyspnea and Denies slow heart rate Resp Denies cough, Denies dyspnea and Denies dyspnea on exertion GI Denies abdominal pain, Denies change in bowel habits, Denies excessive flatus, Denies nausea and Denies vomiting Denies urinary hesitancy, Reports urinary incontinence and Denies urinary urgency Musc Denies atrophy, Denies deformity and Denies limited range of motion Physical Exam Vital Signs: Last Vital Signs BP 108/70 03/24/25 12:37 BMI result Body Mass Index 32.0 Resp Effort & Inspection: normal respiratory effort Auscultation: clear to auscultation bilaterally Cardio Jugular venous distension: no JVD Rate: regular rate Rhythm: regular rhythm Heart sounds: S1 normal heart sound present and S2 normal heart sound present Extrem General: Yes full ROM Immunizations pneumoc 20-rolando conj-dip cr(PF) 0.5 mL IM syringe Performing Provider: Lexii López MD [facility] [place] [facility] Administered by: JOSE Boothe on 03/24/25 13:48 Dose Route Admin Location Dispensed Lot Number Expiration Date [facility] Regional [employer] Truck Driver 0.5 mL IM Left Deltoid 0.5 mL [id number] 02/23/26 2772-3425-58 [employer] Total Dispensed Waste 0.5 mL 0 % VIS Given Date VIS Provided VIS Publication Date 03/24/25 Single Vaccine 25 Eligibility Eligibility Date Funding Source Not [facility] Eligible 03/24/25 Private Assessment & Plan Assessment & Plan (1) Encounter for Medicare annual wellness exam: Code(s): Z00.00 - Encounter for general adult medical examination without abnormal findings (2) Moderate recurrent major depression: Code(s): F33.1 - Major depressive disorder, recurrent, moderate (3) Alcoholic liver disease: Code(s): K70.9 - Alcoholic liver disease, unspecified (4) Urge urinary incontinence: Code(s): N39.41 - Urge incontinence Plan The patient will receive the pneumonia vaccine as part of his preventative care measures, given his age of over 65 years. He will be referred to urology for further evaluation of his occasional urinary incontinence. Laboratory tests will be conducted to monitor cholesterol levels and other routine parameters. The patient will continue his current medications for depression, constipation, and GERD, with adjustments as necessary based on future evaluations. Patient was informed and verbally consented to the use of an ambient scribe for clinic note documentation during this visit. Orders: Orders Comprehensive [place]. Panel Fast Today I10 - Essential (primary) hypertension Pneumococcal 20 Immunization Today Z23 - Encounter for immunization Lipid Panel Today E78.5 - Hyperlipidemia, unspecified Referrals Urology Referral N39.41 - Urge incontinence Quality Reporting (2019) Fall Risk Screening ([facility] 139) Fall risk assessment: No Falls in past year Depression/Bipolar (159/160/161/177) PHQ-9: Total score: 14 Coding Level of Care Code Medicare Subsequent (G0439) Est Pt Level 3 (76182) Diagnoses Encounter for Medicare annual wellness exam Z00.00 Moderate recurrent major depression F33.1 Alcoholic liver disease K70.9 Urge urinary incontinence N39.41 CPT Codes Advance Care Planning - Time spent: 1-15 minutes, on File ([id number]) Additional Codes ALEXANDRE-7 Assessment Billing - ALEXANDRE-7 Assessment Tool: ALEXANDRE-7 Assessment 15100 ([id number]) PHQ-9 - 30148 - PHQ-9 Billing: Yes ([id number]) Time Spent (min) 36 Advance Care Planning Advance Care Planning discussion: Exists, not on file Date of discussion: 03/24/25 Who was present: patient and me Forms completed: Health Care Proxy Time spent: 1-15 minutes, on File Actual minutes spent: 1
[2025-03-24 12:37] VITALS: BP 108/70; BMI 32.0
== END 2025-03-24 13:48 | disposition home or self-care (01) ==
LOC: HO.HMCH 12:21
PROVIDERS: PCP Internal Medicine; Visit Provider Internal Medicine
DX: Z00.00 Encounter for general adult medical examination without abnormal findings (principal); N39.41 Urge incontinence; F33.1 Major depressive disorder, recurrent, moderate; K70.9 Alcoholic liver disease, unspecified; Z23 Encounter for immunization

== ENCOUNTER → 2025-03-24 12:20 | Outpatient (BNVA) | payer MEDICARE, SELFPAY | PROVIDERS: PCP Internal Medicine; Visit Provider Internal Medicine | DX: Z00.00 Encounter for general adult medical examination without abnormal findings (principal); K21.9 Gastro-esophageal reflux disease without esophagitis; K59.00 Constipation, unspecified; F33.1 Major depressive disorder, recurrent, moderate; K70.9 Alcoholic liver disease, unspecified; N39.41 Urge incontinence; I10 Essential (primary) hypertension; E78.5 Hyperlipidemia, unspecified; Z23 Encounter for immunization | CPT/HCPCS: 90471; 90677; 96127; 99212 ==

== ENCOUNTER 2025-05-20 09:50 | Outpatient (AMB) | payer MEDICARE, SELFPAY ==
--- NOTE | 2025-05-20 10:41 | MHC.OFFVIS ---
Intake Visit Reasons: INCONTINENCE Intake Note: patient presents today for: new pt incontinence urology medications: vit b12 blood thinners: none today's PVR: 3mls Tooling Manager Required: Yes Accompanied by: Self / Same As Patient Allergies No Known Allergies (No Known Allergies*) Allergy (Verified 05/20/25 10:42) HPI Comments Details: Oscar is a pleasant Icelandic-speaking male. He is a patient of Dr. López. He is seen for the following urologic conditions - urinary urge incontinence Icelandic translation provided by qualified medical records technician Lower urinary tract symptoms Primarily urgency with urge incontinence States adequate force of stream Low PVR Trial OAB medication Background of cognitive decline with MRI findings, longstanding alcohol use If OAB medication successful switch to beta antagonist PFSH Medical History (Updated 03/24/25 @ 13:45 by Lexii López MD) Nocturnal leg movements Hypersomnia Snoring Gait disorder Neck pain Cognitive impairment Tubular adenoma of colon Transaminitis Chronic GERD Mild recurrent major depression Screening for prostate cancer Chronic pain syndrome Sacroiliac joint dysfunction of right side Sacroiliitis Spondylosis of lumbar spine Bloody stools Lumbar pain Insomnia Hypovitaminosis D Mixed hyperlipidemia Gout Surgical History History of endoscopy History of colonoscopy Family History Father Hypertension Diabetes Mother No problems noted. Sister Breast cancer Substance use disorder Sister Complications of gastric bypass surgery Substance use disorder Other Mental health disorder Social History Housing: Apartment Are you a primary residential caregiver to a significant other at home: No Do you presently have visiting nurse or other home services: No Alcohol intake: current Alcohol intake frequency: 3 or more drinks per day Alcohol type: beer Patient Tobacco Use Status: Never used Tobacco e-Cigarette/Vaping Use: Never Used Second Hand Smoke Exposure: No service: No Current occupational status: unemployed Cognitive needs: No Hearing needs: No Vision needs: Yes Review of Systems Const Denies chills and Denies fever(s) Card Reports no additional complaints and Denies syncope Resp Denies cough GI Denies abdominal pain and Denies heartburn Reports as per HPI and Denies change in libido Neuro Denies syncope Psych Denies change in libido Endo Denies change in libido Physical Exam Const General: cooperative, healthy appearing, comfortable and no acute distress Orientation/consciousness: patient oriented x3 HEENT Face and sinus: Yes normal facial exam Mouth: moist mucous membranes Neck Neck: Yes normal visual inspection, Yes full ROM and Yes trachea midline Chest Chest palpation & inspection: normal inspection of the chest Resp Effort & Inspection: normal respiratory effort, able to speak in complete sentences and no respiratory distress GI Inspection: Yes normal to inspection Back/Spine/Pelvis Cervical Spine: normal cervical lordosis Thoracic/Lumbar Spine: thoracic and lumbar spine normal to inspection Skin General skin exam: no rashes or lesions noted Neuro General: patient oriented x3, gait normal, tone normal and moves all extremities Extrem General: Yes normal to inspection and Yes capillary refill normal Assessment & Plan Assessment & Plan (1) Urge urinary incontinence: Code(s): N39.41 - Urge incontinence Category: Medical Plan Trial OAB medications Medications: New oxybutynin chloride ER 5 mg PO DAILY 30 tabs 1RF 30 days N39.41 - Urge incontinence Patient Instructions: This note is constructed using voice recognition software. While every effort has been made to ensure accuracy airconditioning drafting officer errors may have been included. Imaging studies, laboratory and physical exam results were discussed and reviewed in detail. No major barriers to patient understanding were identified. An opportunity to ask questions regarding the treatment plan was provided. All questions were answered. The patient expressed understanding and agreement with the above treatment plan. The patient is aware they should contact our office by phone for worsening of their current condition or the appearance of new urologic symptoms. Compliance is encouraged with any medications and followup testing that is ordered. It is a privilege to participate in the urologic care of your patient. If you have any questions or concerns regarding treatment for the above conditions, or other urologic issues, please do not hesitate to contact me. The office telephone contact is [phone]. Sincerely, Dr Obdulio Godwin MD, [facility] - Urology Compassionate Specialist Care for the Genitourinary System Coding Level of Care Code New Pt Level 4 (56898) Diagnoses Urge urinary incontinence N39.41
== END 2025-05-20 11:38 | disposition home or self-care (01) ==
LOC: HO.HUSH 09:51
PROVIDERS: PCP Internal Medicine; Visit Provider Urology
DX: N39.41 Urge incontinence (principal); Z13.9 Encounter for screening, unspecified
CPT/HCPCS: 99204

== ENCOUNTER → 2025-05-20 09:50 | Outpatient (BNVA) | payer MEDICARE, SELFPAY | PROVIDERS: PCP Internal Medicine; Visit Provider Urology | DX: N39.41 Urge incontinence (principal) | CPT/HCPCS: 51798; 81003; 99202 ==

== ENCOUNTER 2025-05-24 09:28 | Outpatient (AMB) | payer OTHER, SELFPAY ==
--- NOTE | 2025-05-24 09:31 | A.OFFVIS_ITS ---
Vital Signs 05/24/25 09:50 Height 5 ft 6 in Weight 196 lb BMI 31.6 BP 126/72 Blood Pressure Location Lt brachial Position Sitting Pulse 92 Pulse Source Pulse Oximeter Pulse Oximetry (%) 98 Oxygen Delivery Method Room Air Intake Visit Reasons: 6 mo f/u Constipation, unspecified Intake Note: ESTABLISHED PATIENT for GERD, constipation w/ associated abd pain. Chief Complaint; C.O. constipation exacerbation lately as he ran out of senna but did not call to ask for more. Pt requests refills of all of his medications today. Confirms that, when he does take them, they work as intended. Loss Prevention Specialist Required: Yes Loss Prevention Specialist Services: Loss Prevention Specialist Present Loss Prevention Specialist Name: Hever [id number] Information Interpreted: clinical only Accompanied by: Self / Same As Patient Allergies No Known Allergies (No Known Allergies*) Allergy (Verified 05/24/25 09:31) HPI HPI 6 mo f/u Constipation, unspecified: Details: LAST VISIT: Frequent diarrhea Abdominal pain Irritable bowel syndrome Constipation Plan Will check CRP and fecal calprotectin to rule out colitis. Patient was encouraged to take fiber supplement with pre and probiotic and take senna to help her empty her bowels. Continue low FODMAP diet even though patient believes that it is not helping. It my me help and decrease bloating. May use dicyclomine as needed for cramping, use simethicone for bloating. Patient has a follow-up appointment end of this month. Patient is agreeable to current plan of care and verbalizes understanding of instructions. She was given the opportunity to ask questions and all questions answered. ? Thank you for allowing me to participate in her care Orders C Reactive Protein 04/21/25 K58.9 Calprotectin, Fecal 04/23/25 R15.9 New sennosides (Natural Senna Laxative) 17.2 mg (2 x 8.6 mg) PO BEDTIME 60 tabs 3RF constipation K59.00 TODAY'S VISIT Constipation resolved. Needs refills on colace, famotidine and nexium. Acid re flux is controlled with Nexium in famotidine. Patient reports he has cut down on alcohol and has eliminated rum. Is drinking beer still and the amount VARIES per day, some days more than other. Probably about 10-20 drinks/week.? Denies dysphagia, dyspepsia, odynophagia, heartburn, early satiety, epigastric pain, lower abdominal pain, belching, change in bowel habits, diarrhea, loose stools, constipation, bloating, melena, hematochezia, excessive flatus, ribbon like stools, nausea, vomiting, unintentional weight loss.? [facility] Medical History Nocturnal leg movements Hypersomnia Snoring Gait disorder Neck pain Cognitive impairment Tubular adenoma of colon Transaminitis Chronic GERD Mild recurrent major depression Screening for prostate cancer Chronic pain syndrome Sacroiliac joint dysfunction of right side Sacroiliitis Spondylosis of lumbar spine Bloody stools Lumbar pain Insomnia Hypovitaminosis D Mixed hyperlipidemia Gout Surgical History History of endoscopy History of colonoscopy Family History Father Hypertension Diabetes Mother No problems noted. Sister Breast cancer Substance use disorder Sister Complications of gastric bypass surgery Substance use disorder Other Mental health disorder Social History Housing: Apartment Are you a primary personal care assistant to a significant other at home: No Do you presently have visiting nurse or other home services: No Alcohol intake: current Alcohol intake frequency: 3 or more drinks per day Alcohol type: beer Patient Tobacco Use Status: Never used Tobacco e-Cigarette/Vaping Use: Never Used Second Hand Smoke Exposure: No service: No Current occupational status: unemployed Cognitive needs: No Hearing needs: No Vision needs: Yes Review of Systems Const Denies weight gain and Denies weight loss Card Reports no additional complaints Resp Reports no additional complaints GI Denies abdominal pain, Denies belching, Denies melena, Denies bloating, Denies change in bowel habits, Denies excessive flatus, Denies dyspepsia, Denies heartburn, Denies diarrhea, Denies loose stools, Denies nausea and Denies vomiting Reports no additional complaints Musc Reports no additional complaints Neuro Reports no additional complaints Psych Reports no additional complaints Endo Reports no additional complaints Physical Exam Vital Signs: Last Vital Signs Pulse 92 05/24/25 09:50 BP 126/72 05/24/25 09:50 Pulse Ox 98 05/24/25 09:50 Oxygen Delivery Method Room Air 05/24/25 09:50 BMI result Body Mass Index 31.6 Const General: healthy appearing, no acute distress and well developed Nutritional Appearance: well nourished Orientation/consciousness: patient oriented x3 Resp Effort & Inspection: normal respiratory effort, able to speak in complete sentences, no tracheal deviation and symmetric chest movement Auscultation: clear to auscultation bilaterally Cardio Rate: regular rate GI Inspection: Yes normal to inspection, No distended and Yes obesity Palpation (GI): Soft to palpation, not firm, nontender and No hepatosplenomegaly present Auscultation: Hyperactive bowel sounds present General: Yes no CVA tenderness Back/Spine/Pelvis Back: no CVA tenderness Skin General skin exam: elasticity normal, turgor normal and dry skin Neuro General: patient oriented x3 Psych Appearance: grossly normal Mental Status: mental status grossly normal Results Reviewed Results Reviewed: ABDOMINAL ULTRASOUND WITH ELASTOGRAPHY FINDINGS: Liver: The right lobe of the liver measures 14.4 cm in size. The left lobe of the liver measures 8.8 cm in size. The liver demonstrates increased echotexture, consistent with steatosis. There is a 1.1 cm cyst adjacent to the gallbladder. No intrahepatic biliary ductal dilatation is identified. There is normal hepatopedal flow in the portal vein. Ultrasound elastography of the liver was performed with 10 separate measurements of the liver parenchyma with the patient in the supine position. Measurements were obtained approximately 2 cm below Marlin's capsule and perpendicular to the capsule. The median shear wave velocity is 0.89 m/s. The interquartile range/median (IQR/median) is 0.13. Gallbladder and biliary tree: The gallbladder is unremarkable, without evidence of calculi, wall thickening, or pericholecystic fluid. There is no sonographic Suh sign. The common bile duct is normal in caliber measuring 4 mm. Right Kidney: The right kidney measures 9.0 cm in length. The right kidney is unremarkable, without evidence of masses, hydronephrosis, or calculi. Pancreas: The pancreatic head, neck, and body are unremarkable. The pancreatic tail is obscured by bowel gas. Abdominal aorta and inferior vena cava: The visualized portions of the abdominal aorta and inferior vena cava are normal in caliber. There is no free fluid in the right upper quadrant. US/US abdomen guy w elastography IMPRESSION: Hepatic steatosis. Otherwise unremarkable right upper quadrant ultrasound. The median shear wave velocity in the liver is 0.89 m/s, corresponding to a median liver stiffness of 2.4 kPa. The IQR/median value is 0.13. This is indicative of a quality data set. Findings are indicative of a normal elastography value with a low likelihood of severe fibrosis or cirrhosis. Assessment & Plan Assessment & Plan (1) Chronic GERD: Code(s): K21.9 - Gastro-esophageal reflux disease without esophagitis Category: Medical (2) Transaminitis: Code(s): R74.01 - Elevation of levels of liver transaminase levels Category: Medical (3) Alcoholic liver disease: Code(s): K70.9 - Alcoholic liver disease, unspecified Category: Medical (4) Chronic idiopathic constipation: Code(s): K59.04 - Chronic idiopathic constipation Category: Medical Plan Reinforced fatty liver diet, cutting out alcohol, exercise and weight loss. Will order liver fibrosis panel, liver panel, elastography in January 2026. Colonoscopy due April 2029. Nexium, famotidine and senna refilled today. Follow up in 6 months or sooner if needed. Patient is agreeable to this plan and verbalizes understanding of instructions. She was given the opportunity to ask questions and all questions answered. Thank you for allowing me to participate in his care? Orders: Orders Liver Panel Today R74.01 - Elevation of levels of liver transaminase levels Liver Fibrosis Pnl Today K76.0 - Fatty (change of) liver, not elsewhere classified Medications: Refilled famotidine (Pepcid) 20 mg PO BEDTIME 90 tabs 3RF K21.9 - Gastro-esophageal reflux disease without esophagitis sennosides (Natural Senna Laxative) dos tabletas cada noche 17.2 mg (2 x 8.6 mg) PO BEDTIME 180 tabs 3RF constipation K59.00 - Constipation, unspecified esomeprazole magnesium 40 mg PO DAILY 90 caps 3RF K21.9 - Gastro-esophageal reflux disease without esophagitis Coding Level of Care Code Est Pt Level 4 (09593) Complex EM visit Add On G2211 Diagnoses Chronic GERD K21.9 Transaminitis R74.01 Alcoholic liver disease K70.9 Chronic idiopathic constipation K59.04 Time Spent (min) 35 Comment 25 minutes spent with patient and additional 10 minutes spent reviewing his records
[2025-05-24 09:50] VITALS: BP 126/72; PULSE 92; O2SAT 98; BMI 31.6
== END 2025-05-24 10:30 | disposition home or self-care (01) ==
LOC: HO.HGI 09:28
PROVIDERS: PCP Internal Medicine; Visit Provider Nurse Practitioner Family
DX: K21.9 Gastro-esophageal reflux disease without esophagitis (principal); R74.01 Elevation of levels of liver transaminase levels; K70.9 Alcoholic liver disease, unspecified; K59.04 Chronic idiopathic constipation
CPT/HCPCS: 99214; G2211

== ENCOUNTER 2025-05-24 09:28 | Outpatient (REF) | payer OTHER, SELFPAY ==
[2025-05-24 12:31] LABS: Alanine Aminotransferase 46 U/L (0-40); Albumin Level 4.1 g/dL (3.5-5.0); Alkaline Phosphatase 77 U/L (39-117); Aspartate Amino Transferase 45 U/L (5-37); Total Protein 6.5 g/dL (6.5-8.0)
[2025-05-29 17:52] LABS: FIB-ALT 35 U/L (9-46); FIB-Alpha-2-Macroglobulin 157 mg/dL (106-279); FIB-Apolipoprotein A1 235 mg/dL (94-176); FIB-GGT 227 U/L (3-70); FIB-Haptoglobin 133 mg/dL (43-212); FIB-Total Bilirubin 0.5 mg/dL (0.2-1.2); Liver Fibrosis Score 0.19; Liver Fibrosis Stage F0; Nec Inflam Act Grade A0; Nec Inflam Act Score 0.16
== END 2025-05-24 09:29 | disposition home or self-care (01) ==
LOC: HO.LAB 09:28
PROVIDERS: PCP Internal Medicine; Visit Provider Nurse Practitioner Family
DX: K21.9 Gastro-esophageal reflux disease without esophagitis (principal); K70.9 Alcoholic liver disease, unspecified; K59.04 Chronic idiopathic constipation; R74.01 Elevation of levels of liver transaminase levels
CPT/HCPCS: 36415; 80076; 81596

== ENCOUNTER 2025-08-16 10:45 | Outpatient (AMB) | payer OTHER, MEDICAID, SELFPAY ==
--- NOTE | 2025-08-16 11:34 | A.OFFVIS_ITS ---
Vital Signs 08/16/25 11:35 Height 5 ft 6 in Weight 201 lb BMI 32.4 BP 122/80 Blood Pressure Location Lt brachial Position Sitting Pulse 88 Pulse Source Pulse Oximeter Pulse Oximetry (%) 99 Oxygen Delivery Method Room Air Intake Visit Reasons: 6 months follow up Intake Note: Patient presents follow up Cognitive/Sleep Prison Guard Supervisor Required: Yes Prison Guard Supervisor Name: Rajni Oviedo # [id number] Accompanied by: Self / Same As Patient Allergies No Known Allergies (No Known Allergies*) Allergy (Verified 08/16/25 11:35) HPI Comments Details: 65 y/o male comes for a f/u of ERIC and evaluation of Cognitive Decline. A certified medical staff credentialing coordinator on IPAD helps with history. Pt has severe eric, AHI was 59/hr and O2 Baron to 85%. In October 2024 he underwent a titration study and started IPAP 25/ EPAP 22. Pt was doing well initially then started to feel pressures were too strong on his face. We discussed various masks and changing out equipment. Recent ERIC compliance report 04/2025- 07/2025 reviewed with pt. and reviewed criteria for compliance and best outcomes for health given his co-morbidities due to AUD. He requested masks from [employer] and still has not received his new mask and this makes it difficult for him to use his cpap machine consistently. He can not get air into his mouth or nose and leaks continue to be 97/min. He has difficulty falling asleep at night, he sleeps all day long and can not sleep through the night. He feels restless at night, with gasping arousals, he talks and snores loudly in his sleep, even with trazadone 100mg po 1.5 tablet. He denies parasomnias, and moves a lot at night. He can hit his in his sleep unintentionally with hands or feet flailing. His STM is poor, memory issues started about 6-9 months ago, forgets a lot especially daily tasks, appointments, misplaces things. He forgets conversations and forgets to take his medications. Now he says he loses track of the days of the week. He uses his PC and phone with no issues. He is independent in all his ADLs, denies falls. His daughter helps with his finances. RLS symptoms bilaterally with numbness, tingling, and an unusual sensation travels up the ankles to shins, he has cramps and spasms. He stopped driving in 2010 due to his mood disorder, and is taking Buproprion, and Fluoxetine 80mg sees his therapist 2 x month. He has depression and anxiety which is worse in winter and around [place]. He continues to drink 6-12 beers daily, 2-3x per week, we discussed tapering of alcohol and joining a support group. MMSE is 26/30. [facility] Medical History Nocturnal leg movements Hypersomnia Snoring Gait disorder Neck pain Cognitive impairment Tubular adenoma of colon Transaminitis Chronic GERD Mild recurrent major depression Screening for prostate cancer Chronic pain syndrome Sacroiliac joint dysfunction of right side Sacroiliitis Spondylosis of lumbar spine Bloody stools Lumbar pain Insomnia Hypovitaminosis D Mixed hyperlipidemia Gout Surgical History History of endoscopy History of colonoscopy Family History Father Hypertension Diabetes Mother No problems noted. Sister Breast cancer Substance use disorder Sister Complications of gastric bypass surgery Substance use disorder Other Mental health disorder Social History Housing: Apartment Are you a primary cattle care worker to a significant other at home: No Do you presently have visiting nurse or other home services: No Alcohol intake: current Alcohol intake frequency: 3 or more drinks per day Alcohol type: beer Patient Tobacco Use Status: Never used Tobacco e-Cigarette/Vaping Use: Never Used Second Hand Smoke Exposure: No service: No Current occupational status: unemployed Cognitive needs: No Hearing needs: No Vision needs: Yes Physical Exam Vital Signs: Last Vital Signs Pulse 88 08/16/25 11:35 BP 122/80 08/16/25 11:35 Pulse Ox 99 08/16/25 11:35 Oxygen Delivery Method Room Air 08/16/25 11:35 BMI result Body Mass Index 32.4 Const General: cooperative, healthy appearing and comfortable Nutritional Appearance: overweight Orientation/consciousness: patient oriented x3 Eyes Pupils: Equal, round and reactive pupils present Neuro Other: somnolent gait sways to the sides and leans FFM overshoots General: patient oriented x3, gait normal, tone normal, moves all extremities and no focal motor deficits Cranial nerves: Yes Facial sensation intact/muscles of mastication intact, Yes Equal, round and reactive pupils present, Yes Bilaterally intact EOM present, Yes Nystagmus not present, Yes Normal facial strength present, Yes Midline tongue present, Yes Symmetric palate elevation present, Yes Ability to bilaterally rotate head present and Yes Ability to bilaterally elevate shoulders present Cognition (Neuro): normal cognition Gait exam (Neuro): Normal gait present Motor exam (neuro): 5/5 motor strength present throughout and Normal motor muscle tone present throughout Deep tendon reflexes (DTR's): Right triceps reflex intensity grade: 2+, Left triceps reflex intensity grade: 2+, Rt Biceps (C5, C6): 2+, Left biceps reflex intensity grade: 2+, Right brachioradialis reflex intensity grade: 2+, Left brachioradialis reflex intensity grade: 2+, Right patellar reflex intensity grade: 1+ and Left patellar reflex intensity grade: 1+ Psych Other: sad Appearance: well kempt Speech and movement: Other speech and movement exam findings present (Psych) (language barrier) Attitude: cooperative Insight: Fair insight present (Psych) Results Reviewed Results Reviewed: ERIC compliance reviewed with pt and pt unable to use his bipap machine due to mask not received from [facility]. will write a new rx and trial him on a different mask. MRI findings No prevertebral compartment hematoma mass or fluid collection. Flow-void signal within the main vessels is normal. Codominant vertebral arteries. Bilateral prominent nonspecific cervical lymph nodes. There is a 1.5 cm retention cysts versus polyp in the left maxillary sinus. Assessment & Plan Assessment & Plan (1) Insomnia: Comment: melatonin 6mg and trazadone 150mg Code(s): G47.00 - Insomnia, unspecified Category: Medical Qualifiers: Insomnia type: unspecified Qualified Code(s): G47.00 - Insomnia, unspecified (2) ERIC treated with BiPAP: Comment: rx sent to [facility] for new mask- airfit f30 i freedom full face, large mask, side sleeper. Code(s): G47.33 - Obstructive sleep apnea (adult) (pediatric) Category: Medical Plan: severe eric AHI is 59/hr (3) Hypovitaminosis D: Code(s): E55.9 - Vitamin D deficiency, unspecified Category: Medical (4) Alcoholic liver disease: Code(s): K70.9 - Alcoholic liver disease, unspecified Category: Medical Plan: AUD? (5) Snoring: Code(s): R06.83 - Snoring Category: Medical (6) Nocturnal leg movements: Comment: ? PLMD Code(s): R25.8 - Other abnormal involuntary movements Category: Medical (7) Cognitive impairment: Comment: MCI MMSE is 26 / lanuage barrier? Wernickes? Korsakoff? Code(s): R41.89 - Other symptoms and signs involving cognitive functions and awareness Category: Medical (8) Memory loss: Code(s): R41.3 - Other amnesia Category: Medical (9) Retention cyst of nasal sinus: Comment: mri l. side - Code(s): J34.1 - Cyst and mucocele of nose and nasal sinus Category: Medical Plan MCI 09/2024 MRI cognitive decline, Brain MRI reviewed with pt, changes of white matter due to small vessel ischemia. Severe ERIC 10/2024 Titration Reviewed with Patient and Bipap I25/E22 with Large Air Touch F20 freedom category mask order is sent to [facility], feels suffocated due to pressures, will change out mask, pressure adjustment not recommended. L. retention cyst of nasal sinus, will rx flonase 1 spra in each nostril for nasal congestion. Cognitive Decline AUD discussed tapering Alcohol use, MMSE 26, will start Cerfolin 1capsule daily by mouth, continue thiamine daily. B1 thiamine? Labs to r/o metabolic deficiencies in Wernickes, vs Korsakoff. Peripheral neuropathy, sensory vs motor demyelination? Discussed Mood and Alcohol use, recommend f/u with therapist 1x a week, and decreasing 6pack of Beer every other day to 3 cans every other day, recommend joining a support group. F/U in 3 months Orders: Orders TSH reflex Free T4 Today R41.3 - Other amnesia, R41.89 - Other symptoms and signs involving cognitive functions and awareness Methylmalonic Acid Today G47.9 - Sleep disorder, unspecified, R41.3 - Other amnesia, R41.89 - Other symptoms and signs involving cognitive functions and awareness, R53.83 - Other fatigue Vitamin B1 Today R41.3 - Other amnesia, R41.89 - Other symptoms and signs involving cognitive functions and awareness Vitamin D 25-OH Total Today R41.3 - Other amnesia, R41.89 - Other symptoms and signs involving cognitive functions and awareness Homocysteine Today G47.9 - Sleep disorder, unspecified, R41.3 - Other amnesia, R41.89 - Other symptoms and signs involving cognitive functions and awareness, R53.83 - Other fatigue Vitamin B12 and Folate Today R41.3 - Other amnesia, R41.89 - Other symptoms and signs involving cognitive functions and awareness Vitamin B6 Today R41.3 - Other amnesia, R41.89 - Other symptoms and signs involving cognitive functions and awareness Ferritin Today R41.3 - Other amnesia, R41.89 - Other symptoms and signs involving cognitive functions and awareness Medications: New fluticasone propionate 50 mcg/actuation (Flonase Allergy Relief) administer into each nostril 1 spray intranasal DAILY 16 grams 0RF 1 month Coding Level of Care Code Est Pt Level 4 (78516) Diagnoses Insomnia, unspecified type G47.00 Insomnia type: unspecified ERIC treated with BiPAP G47.33 Hypovitaminosis D E55.9 Alcoholic liver disease K70.9 Snoring R06.83 Nocturnal leg movements R25.8 Cognitive impairment R41.89 Memory loss R41.3 Retention cyst of nasal sinus J34.1
[2025-08-16 11:35] VITALS: BP 122/80; PULSE 88; O2SAT 99; BMI 32.4
== END 2025-08-16 12:34 | disposition home or self-care (01) ==
PROVIDERS: PCP Internal Medicine; Visit Provider Physician Assistant Medical
DX: G47.00 Insomnia, unspecified (principal); G47.33 Obstructive sleep apnea (adult) (pediatric); E55.9 Vitamin D deficiency, unspecified; K70.9 Alcoholic liver disease, unspecified; R06.83 Snoring; R25.8 Other abnormal involuntary movements; R41.89 Other symptoms and signs involving cognitive functions and awareness; R41.3 Other amnesia; J34.1 Cyst and mucocele of nose and nasal sinus
CPT/HCPCS: 99214